=== PATIENT | female | born 1945 | race Caucasian/White ===

== ENCOUNTER 2019-05-19 22:20 | Emergency (ER) | payer MEDICARE ==
--- NOTE | 2019-05-19 23:33 | EDM.PDOC ---
ED HPI GENERAL MEDICAL PROBLEM - General Stated Complaint: painful great toe Time Seen by Provider: 05/19/19 22:48 Source of Information: Reports: Patient, Family History Limitations: Reports: No Limitations - History of Present Illness INITIAL COMMENTS - FREE TEXT/NARRATIVE: Patient presents with painful and blue left great toe. This started a little over a week ago and she says the two weeks prior to that her toe was red. She saw her PCP a week ago and was diagnosed with acute gout and treated with prednisone and NSAIDS but that isn't helping and the patient is here to get something stronger for the pain. She is IDDM and takes BP meds and baby aspirin. - Related Data Allergies Allergy/AdvReac Type Severity Reaction Status Date / Time Penicillins Allergy Intermediate Itching Verified 05/19/19 22:40 Home Meds: Home Meds . [Unable to Verify Home Med List] 05/19/19 [History] ED ROS GENERAL - Review of Systems Review Of Systems: See Below Constitutional: Denies: Fever, Malaise, Weakness HEENT: Reports: No Symptoms Respiratory: Denies: Shortness of Breath, Cough Cardiovascular: Denies: Chest Pain, Lightheadedness, Syncope Endocrine: Reports: No Symptoms GI/Abdominal: Denies: Abdominal Pain, Diarrhea, Vomiting : Denies: Dysuria, Flank Pain Musculoskeletal: Denies: Neck Pain, Shoulder Pain, Arm Pain, Back Pain, Hand Pain, Leg Pain, Foot Pain, Joint Pain Skin: Reports: Cyanosis (see CC). Denies: Jaundice, Mottled, Pallor, Diaphoresis Neurological: Denies: Confusion, Dizziness, Seizure, Syncope, Trouble Speaking, Difficulty Walking Psychiatric: Denies: Agitation, Anxiety, Confusion ED EXAM, GENERAL - Physical Exam Exam: See Below Exam Limited By: No Limitations General Appearance: Alert, WD/WN, No Apparent Distress Eye Exam: Bilateral Eye: EOMI, Normal Inspection, PERRL Ears: Normal External Exam, Hearing Grossly Normal Nose: Normal Inspection, No Blood Throat/Mouth: Normal Inspection, Normal Lips, Normal Voice, No Airway Compromise Head: Atraumatic, Normocephalic Neck: Normal Inspection, Full Range of Motion Respiratory/Chest: No Respiratory Distress, Lungs Clear, Normal Breath Sounds, No Accessory Muscle Use Cardiovascular: Regular Rate, Rhythm, No Edema, No Murmur Peripheral Pulses: 0: Posterior Tibial (L) (Doppler found a faint pulse here), Dorsalis Pedis (L) (nothing on doppler either), 2+: Carotid (L), Carotid (R), Radial (L), Radial (R), Posterior Tibial (R), Dorsalis Pedis (R) GI/Abdominal: Normal Bowel Sounds, Soft, Non-Tender, No Organomegaly, No Distention Back Exam: Normal Inspection, Full Range of Motion. No: CVA Tenderness (L), CVA Tenderness (R) Extremities: Normal Range of Motion, No Pedal Edema, Other (Left great toe is bluish-purple in the distal 2/3s, and second toe is blue distal 1/3. Palpation of the blue area is very tender. The joints are non-tender to palpation. Cap refill is slow but present (turns white then blue again). The lateral three toes and right side toes are pink. Sensation is intact but very slightly less in great toe in comparison to right per patient on exam. Motor is intact bilat. ) Neurological: Alert, Oriented, Normal Cognition, No Motor/Sensory Deficits ( except as above.) Psychiatric: Normal Affect, Normal Mood Skin Exam: Warm, Dry, Intact, Normal Color (except as above), No Rash Course - Vital Signs Last Recorded V/S: Last Vital Signs Temp 96.7 F 05/19/19 22:35 Pulse 74 05/19/19 22:35 Resp 16 05/19/19 22:35 BP 188/63 H 05/19/19 22:35 Pulse Ox 93 L 05/19/19 22:35 - Re-Assessments/Exams Free Text/Narrative Re-Assessment/Exam: 05/19/19 23:53 Discussed case with vascular surgeon, Dr. Guzmán at [facility] in [place] who advised aspirin (antiplatelet) and NSAIDS/oxycodone (pain control) for the next few days. His office will call her tomorrow and schedule appointment next week for evaluation and treatment options. He calls it "blue toe syndrome" and suspects microemboli in distal small arteries causing this. He says there is no treatment acutely for the toe now and it should develop collateral circulation and be viable. He wants to find where the microemboli are coming from and try to prevent further problems. I explained this to patient and her son/dtr-n-law. Patient discharged to home in stable condition. Departure - Departure Time of Disposition: 23:36 Disposition: Home, Self-Care 01 Reason for Transfer *Q: Other Condition: Good Clinical Impression: Blue toe syndrome of left lower extremity, Decreased pedal pulses Additional Instructions: 1. Take a full-strength aspirin daily. 2. Take Ibuprofen 600 mg three times daily as needed for pain. 3. If you need more pain relief take the Oxycodone as directed. 4. Tomorrow the [facility] in [place] will call you to set up an appointment for one day next week to evaluate and treat this as well as try to prevent additional problems with clotting and circulation.
[2019-05-19] MEDS ORDERED: Aspirin 325 MG Tab.EC PO ONE (23:35)
[2019-05-19] MEDS: Acetaminophen/oxyCODONE 325-5 MG Tab PO ONE (23:59)
== END 2019-05-19 23:55 | disposition home or self-care (01) ==
LOC: KA.ED 22:20
DX: I75.022 Atheroembolism of left lower extremity (principal); Z76.0 Encounter for issue of repeat prescription; E11.9 Type 2 diabetes mellitus without complications; Z79.4 Long term (current) use of insulin; Z79.82 Long term (current) use of aspirin; Z88.0 Allergy status to penicillin
CPT/HCPCS: 99283; 99284; A9270-GY

== ENCOUNTER 2019-06-25 13:40 | Inpatient (IN) | payer MEDICAID, MEDICARE ==
[2019-06-25] MEDS ORDERED: Sodium Chloride 0.9% 1,000 ML IV ONE (14:03)
[2019-06-25] MEDS ORDERED: Ondansetron 4 MG/2 ML SDV IVPUSH ONE (14:03)
--- NOTE | 2019-06-25 14:27 | EDM.PDOC ---
ED HPI GENERAL MEDICAL PROBLEM - General Chief Complaint: General Stated Complaint: NAUSEA,DEHYDRATION,VOMITING Time Seen by Provider: 06/25/19 14:01 Source of Information: Reports: Patient, Family (Family) History Limitations: Reports: No Limitations - History of Present Illness INITIAL COMMENTS - FREE TEXT/NARRATIVE: Patient is a 73-year-old female who presents to the emergency department via private vehicle with a complaint of not feeling well. Patient was said to have fever and chills for the last 2 days. Mild cough. Today developed nausea and vomiting without abdominal pain. Patient denies chest pain, shortness of breath , headache, diarrhea, blood in stool, dysuria, flank pain, or others in the household with similar symptoms. Onset: Gradual Duration: Day(s): Improves with: Reports: None Worsens with: Reports: None Associated Symptoms: Reports: Cough, Fever/Chills, Nausea/Vomiting, Shortness of Breath - Related Data Allergies Allergy/AdvReac Type Severity Reaction Status Date / Time Penicillins Allergy Intermediate Itching Verified 06/25/19 13:58 Home Meds: Home Meds Allopurinol [Zyloprim] 100 mg PO DAILY 06/25/19 [History] Aspirin 81 mg PO DAILY 06/25/19 [History] Atenolol 100 mg PO DAILY 06/25/19 [History] Atenolol [Tenormin] 50 mg PO BEDTIME 06/25/19 [History] Carboxymethylcellulose Sodium [Refresh Tears 0.5% Ophth Soln] 1 ml EYEBOTH DAILY PRN 06/25/19 [History] Clopidogrel Bisulfate [Clopidogrel] 75 mg PO DAILY 06/25/19 [History] Famotidine [Pepcid] 20 mg PO BID 06/25/19 [History] Furosemide [Lasix] 40 mg PO DAILY 06/25/19 [History] Insulin Glarg,Human.Rec.Analog [Lantus] 20 unit SQ BEDTIME 06/25/19 [History] Insulin Glarg,Human.Rec.Analog [Lantus] 40 - 45 unit SQ DAILY 06/25/19 [History] Levothyroxine [Synthroid] 50 mcg PO ACBREAKFAST 06/25/19 [History] Lisinopril 20 mg PO BID 06/25/19 [History] Multivitamin with Minerals [Multivitamins with Minerals] 1 tab PO DAILY [History] Rosuvastatin Calcium [Crestor] 40 mg PO DAILY 06/25/19 [History] Sennosides/Docusate Sodium [Senna Plus 8.6-50 mg Tablet] 1 each PO DAILY PRN [History] Simethicone 80 mg PO TID 06/25/19 [History] Triamcinolone Acetonide [Triamcinolone Acetonide 0.1% Crm] 1 applic TOP BID PRN 06/25/19 [History] cloNIDine 0.2 mg TOP Q7D 06/25/19 [History] cloNIDine 1 patch TOP Q7D 06/25/19 [History] cloNIDine [Catapres] 0.1 mg PO DAILY PRN 06/25/19 [History] glipiZIDE [Glipizide ER] 5 mg PO DAILY 06/25/19 [History] hydrALAZINE [Apresoline] 100 mg PO Q12HR 06/25/19 [History] metFORMIN [Glucophage] 1,000 mg PO DAILY 06/25/19 [History] oxyCODONE HCl/Acetaminophen [Oxycodone-Acetaminophen 5-325] 1 each PO Q6H PRN [History] ED ROS GENERAL - Review of Systems Review Of Systems: Comprehensive ROS is negative, except as noted in HPI. Constitutional: Reports: Fever, Chills, Weakness HEENT: Reports: No Symptoms Respiratory: Reports: Shortness of Breath, Cough Cardiovascular: Reports: No Symptoms Endocrine: Reports: No Symptoms GI/Abdominal: Reports: No Symptoms : Reports: No Symptoms Musculoskeletal: Reports: No Symptoms Skin: Reports: Other (Left foot. Vascular insufficiency with necrotic tissue) Neurological: Reports: No Symptoms Psychiatric: Reports: No Symptoms Hematologic/Lymphatic: Reports: No Symptoms Immunologic: Reports: No Symptoms ED EXAM, GENERAL - Physical Exam Exam: See Below Exam Limited By: No Limitations General Appearance: Alert, WD/WN, Mild Distress Eye Exam: Bilateral Eye: Normal Inspection Nose: Normal Inspection, Normal Mucosa, No Blood Throat/Mouth: Normal Inspection, Normal Oropharynx, No Airway Compromise Head: Atraumatic, Normocephalic Neck: Normal Inspection, Supple, Non-Tender Respiratory/Chest: No Respiratory Distress, Rales (Bibasilar) Cardiovascular: Regular Rate, Rhythm, No Murmur GI/Abdominal: Normal Bowel Sounds, Soft, Non-Tender, No Organomegaly, No Distention, No Abnormal Bruit, No Mass Back Exam: Normal Inspection. No: CVA Tenderness (L), CVA Tenderness (R) Extremities: Slow Capillary Refill (Bilateral lower extremities), Other (Left foot with distal phalanx of great toe necrotic. Multiple ulcerations of medial ankle. No erythema or streaking noted) Neurological: Alert, Oriented, Normal Cognition Psychiatric: Normal Affect, Normal Mood Skin Exam: Warm, Dry, No Rash, Wound/Incision (As above) Lymphatic: No Adenopathy Course - Vital Signs Last Recorded V/S: Last Vital Signs Temp 98.0 F 06/25/19 13:55 Pulse 74 06/25/19 13:55 Resp 20 06/25/19 13:55 BP 157/76 H 06/25/19 13:55 Pulse Ox 81 L 06/25/19 13:55 - Orders/Labs/Meds Orders: Active Orders 24 hr Category Date Time Status Patient Status [ADT] Routine ADT 06/25/19 16:50 Ordered Oxygen Therapy [RC] PRN Care 06/25/19 16:50 Ordered Peripheral IV Care [RC] . DIRECTED Care 06/25/19 14:03 Ordered VTE/DVT Education [RC] PER UNIT ROUTINE Care 06/25/19 16:50 Ordered Vital Signs [RC] Q4H Care 06/25/19 16:50 Ordered Azithromycin [Zithromax] 500 mg Med 06/25/19 16:48 Ordered Sodium Chloride 0.9% [Normal Saline] 250 ml IV ONETIME Potassium Chloride [KCL 20 MEQ in Water 100 ML] 20 meq Med 06/25/19 16:48 Ordered Premix Bag 1 bag IV ONETIME Sodium Chloride 0.9% @ 100 MLS/HR(250ml) Med 06/25/19 14:30 Ordered Sodium Chloride 0.9% [Normal Saline] 250 ml IV ASDIRECTED Sodium Chloride 0.9% [Saline Flush] Med 06/25/19 14:03 Ordered 10 ml FLUSH Q8HR PRN Peripheral IV Insertion Adult [OM.PC] Routine Oth 06/25/19 14:03 Ordered Resuscitation Status Routine Resus Stat 06/25/19 16:50 Ordered Medication Orders Sodium Chloride (Normal Saline) 250 mls @ 100 mls/hr IV ASDIRECTED SANTINO Last Admin: 06/25/19 15:16 Dose: 100 mls/hr Azithromycin 500 mg/ Sodium (Chloride) 250 mls @ 250 mls/hr IV ONETIME ONE Stop: 06/25/19 17:47 Potassium Chloride 20 meq/ (Premix) 100 mls @ 50 mls/hr IV ONETIME ONE Stop: 06/25/19 18:47 Sodium Chloride (Saline Flush) 10 ml FLUSH Q8HR PRN PRN Reason: keep vein open Labs: Laboratory Tests 06/25/19 06/25/19 06/25/19 Range/Units 14:20 14:20 14:20 WBC 15.32 H (5.00-10.00) 10^3/uL RBC 2.88 L (3.80-5.50) 10^6/uL Hgb 8.9 L (12.0-16.0) g/dL Hct 27.1 L (37.0-47.0) % MCV 94.1 H (82.0-92.0) fL MCH 30.9 (27.0-31.0) pg MCHC 32.8 (32.0-36.0) g/dL RDW 12.9 (11.5-14.5) % Plt Count 317 (150-400) 10^3/uL MPV 9.0 (7.4-10.4) fL Immature Gran % (Auto) 1.0 (0.0-5.0) % Neut % (Auto) 88.4 H (50.0-70.0) % Lymph % (Auto) 4.6 L (20.0-40.0) % Ida % (Auto) 5.9 (2.0-8.0) % Eos % (Auto) 0.0 L (1.0-3.0) % Baso % (Auto) 0.1 (0.0-1.0) % Immature Gran # (Auto) 0.16 (0.00-0.50) 10^3/uL Neut # (Auto) 13.53 H (2.50-7.00) 10^3/uL Lymph # (Auto) 0.71 L (1.00-4.00) 10^3/uL Ida # (Auto) 0.91 H (0.10-0.80) 10^3/uL Eos # (Auto) 0.00 L (0.10-0.30) 10^3/uL Baso # (Auto) 0.01 (0.00-0.10) 10^3/uL Sodium 137 (136-145) mmol/L Potassium 2.8 L (3.3-5.3) mmol/L Chloride 93 L (98-115) mmol/L Carbon Dioxide 28.7 (21.0-32.0) mmol/L Anion Gap 18.1 H (5-15) mmol/L BUN 19 (6-25) mg/dL Creatinine 1.05 (0.51-1.17) mg/dL Est Cr Clr Drug Dosing TNP Estimated GFR (MDRD) 52 mL/min Glucose 128 H (75 - 99) mg/dL Calcium 8.8 (8.7-10.3) mg/dL Total Bilirubin 0.6 (0.2-1.0) mg/dL AST 18 (15-37) U/L ALT 17 (12-78) U/L Alkaline Phosphatase 69 (46-116) IU/L B-Natriuretic Peptide 297 H (0-100) pg/mL Total Protein 6.7 (6.4-8.2) g/dL Albumin 2.89 L (3.00-4.80) g/dL Specimen Type Urine Color (YELLOW) Urine Appearance (CLEAR) Urine pH (5.0-9.0) Ur Specific [place] (1.005-1.030) Urine Protein (NEGATIVE) mg/dL Urine Glucose (UA) (NEGATIVE) mg/dL Urine Ketones (NEGATIVE) mg/dL Urine Occult Blood (NEGATIVE) Urine Nitrite (NEGATIVE) Urine Bilirubin (NEGATIVE) Urine Urobilinogen (0.2-1.0) E.U./dL Ur Leukocyte Esterase (NEGATIVE) Urine RBC (0-5) /HPF Urine WBC (0-5) /HPF Ur Epithelial Cells /LPF Urine Bacteria (NONE TO FEW) /HPF 06/25/19 Range/Units 15:05 WBC (5.00-10.00) 10^3/uL RBC (3.80-5.50) 10^6/uL Hgb (12.0-16.0) g/dL Hct (37.0-47.0) % MCV (82.0-92.0) fL MCH (27.0-31.0) pg MCHC (32.0-36.0) g/dL RDW (11.5-14.5) % Plt Count (150-400) 10^3/uL MPV (7.4-10.4) fL Immature Gran % (Auto) (0.0-5.0) % Neut % (Auto) (50.0-70.0) % Lymph % (Auto) (20.0-40.0) % Ida % (Auto) (2.0-8.0) % Eos % (Auto) (1.0-3.0) % Baso % (Auto) (0.0-1.0) % Immature Gran # (Auto) (0.00-0.50) 10^3/uL Neut # (Auto) (2.50-7.00) 10^3/uL Lymph # (Auto) (1.00-4.00) 10^3/uL Ida # (Auto) (0.10-0.80) 10^3/uL Eos # (Auto) (0.10-0.30) 10^3/uL Baso # (Auto) (0.00-0.10) 10^3/uL Sodium (136-145) mmol/L Potassium (3.3-5.3) mmol/L Chloride (98-115) mmol/L Carbon Dioxide (21.0-32.0) mmol/L Anion Gap (5-15) mmol/L BUN (6-25) mg/dL Creatinine (0.51-1.17) mg/dL Est Cr Clr Drug Dosing Estimated GFR (MDRD) mL/min Glucose (75 - 99) mg/dL Calcium (8.7-10.3) mg/dL Total Bilirubin (0.2-1.0) mg/dL AST (15-37) U/L ALT (12-78) U/L Alkaline Phosphatase (46-116) IU/L B-Natriuretic Peptide (0-100) pg/mL Total Protein (6.4-8.2) g/dL Albumin (3.00-4.80) g/dL Specimen Type . Urine Color Yellow (YELLOW) Urine Appearance Clear (CLEAR) Urine pH 5.5 (5.0-9.0) Ur Specific [place] 1.010 (1.005-1.030) Urine Protein 100 H (NEGATIVE) mg/dL Urine Glucose (UA) Negative (NEGATIVE) mg/dL Urine Ketones Negative (NEGATIVE) mg/dL Urine Occult Blood Negative (NEGATIVE) Urine Nitrite Negative (NEGATIVE) Urine Bilirubin Negative (NEGATIVE) Urine Urobilinogen 0.2 (0.2-1.0) E.U./dL Ur Leukocyte Esterase Negative (NEGATIVE) Urine RBC Not seen (0-5) /HPF Urine WBC 0-5 (0-5) /HPF Ur Epithelial Cells Occasional /LPF Urine Bacteria Occasional (NONE TO FEW) /HPF Meds: Medications Generic Name Dose Route Start Last Admin Trade Name Freq PRN Reason Stop Dose Admin Sodium Chloride 250 mls @ 100 mls/hr 06/25/19 14:30 06/25/19 15:16 Normal Saline IV 100 mls/hr ASDIRECTED SANTINO Administration Azithromycin 500 mg/ Sodium 250 mls @ 250 mls/hr 06/25/19 16:48 Chloride IV 06/25/19 17:47 ONETIME ONE Potassium Chloride 20 meq/ 100 mls @ 50 mls/hr 06/25/19 16:48 Premix IV 06/25/19 18:47 ONETIME ONE Sodium Chloride 10 ml 06/25/19 14:03 Saline Flush FLUSH Q8HR PRN keep vein open Discontinued Medications Generic Name Dose Route Start Last Admin Trade Name Freq PRN Reason Stop Dose Admin Ceftriaxone Sodium 1 gm 06/25/19 16:48 Rocephin IVPUSH 06/25/19 16:49 ONETIME ONE Sodium Chloride 1,000 mls @ 999 mls/hr 06/25/19 14:03 06/25/19 15:18 Normal Saline IV 06/25/19 15:03 Not Given .BOLUS ONE Ondansetron HCl 4 mg 06/25/19 14:03 06/25/19 15:14 Zofran IVPUSH 06/25/19 14:04 4 mg ONETIME ONE Administration - Radiology Interpretation Free Text/Narrative:: Chest x-ray shows Perihilar congestion consistent with bronchitis Right foot x-ray shows no definite acute osseous abnormalities - Re-Assessments/Exams Free Text/Narrative Re-Assessment/Exam: 06/25/19 16:53 Patient afebrile, vital signs stable, given 1 g Rocephin IV, 500 mg Zithromax IV , and 20 mEq of potassium. Discussed case with Josh Malloy provider. He will admit for observation and follow Departure - Departure Time of Disposition: 16:52 Disposition: Refer to Observation Condition: Fair Clinical Impression: Bronchitis, Hypokalemia, Hypoxemia Leukocytosis Qualifiers: Leukocytosis type: unspecified Qualified Code(s): D72.829 - Elevated white blood cell count, unspecified Anemia Qualifiers: Anemia type: unspecified type Qualified Code(s): D64.9 - Anemia, unspecified - Discharge Information Referrals: Jesenia Ash PA-C [Primary Care Provider] - Forms: ED Department Discharge Sepsis Event Note - Evaluation Sepsis Screening Result: No Definite Risk - Focused Exam Vital Signs: Vital Signs Temp Pulse Resp BP Pulse Ox 06/25/19 13:55 98.0 F 74 20 157/76 H 81 L Date Exam was Performed: 06/25/19 Time Exam was Performed: 16:54 - My Orders Last 24 Hours: My Active Orders 06/25/19 14:03 Peripheral IV Care [RC] . DIRECTED Sodium Chloride 0.9% [Saline Flush] 10 ml FLUSH Q8HR PRN Peripheral IV Insertion Adult [OM.PC] Routine 06/25/19 14:30 Sodium Chloride 0.9% @ 100 MLS/HR(250ml) Sodium Chloride 0.9% [Normal Saline] 250 ml IV ASDIRECTED 06/25/19 16:48 Azithromycin [Zithromax] 500 mg Sodium Chloride 0.9% [Normal Saline] 250 ml IV ONETIME Potassium Chloride [KCL 20 MEQ in Water 100 ML] 20 meq Premix Bag 1 bag IV ONETIME 06/25/19 16:50 Patient Status [ADT] Routine Oxygen Therapy [RC] PRN VTE/DVT Education [RC] PER UNIT ROUTINE Vital Signs [RC] Q4H Resuscitation Status Routine - Assessment/Plan Last 24 Hours: My Active Orders 06/25/19 14:03 Peripheral IV Care [RC] . DIRECTED Sodium Chloride 0.9% [Saline Flush] 10 ml FLUSH Q8HR PRN Peripheral IV Insertion Adult [OM.PC] Routine 06/25/19 14:30 Sodium Chloride 0.9% @ 100 MLS/HR(250ml) Sodium Chloride 0.9% [Normal Saline] 250 ml IV ASDIRECTED 06/25/19 16:48 Azithromycin [Zithromax] 500 mg Sodium Chloride 0.9% [Normal Saline] 250 ml IV ONETIME Potassium Chloride [KCL 20 MEQ in Water 100 ML] 20 meq Premix Bag 1 bag IV ONETIME 06/25/19 16:50 Patient Status [ADT] Routine Oxygen Therapy [RC] PRN VTE/DVT Education [RC] PER UNIT ROUTINE Vital Signs [RC] Q4H Resuscitation Status Routine
[2019-06-25] MEDS ORDERED: Sodium Chloride 0.9% 250 ML IV SCH (14:30)
[2019-06-25 14:57] LABS: ANION GAP 18.1 mmol/L (5-15); CHLORIDE,CL 93 mmol/L (98-115); SODIUM,NA 137 mmol/L (136-145)
--- NOTE | 2019-06-25 15:22 | CR ---
[id number] RAD/RAD Foot Left 2V EXAM: 3 VIEWS LEFT FOOT. INDICATION: UPPER RESPIRATORY INFECTION. COMPARISON: None. DISCUSSION: No fracture, dislocation or other acute osseous abnormality. Postsurgical changes following internal fixation of the distal tibia and fibula. No evidence of acute hardware failure or loosening. Moderate degenerative changes of the left ankle and midfoot. Mild degenerative changes of the interphalangeal joints. Moderate plantar calcaneal spur. IMPRESSION: 1. No definite acute osseous abnormalities. Chronic changes as above. Alex Das DO 06/25/19 1521 Thank you for allowing us to participate in the care of your patient.
--- NOTE | 2019-06-25 15:23 | CR ---
[id number] RAD/RAD Chest PA And Lateral EXAM: RAD Chest PA And Lateral INDICATION: UPPER RESPIRATORY INFECTION. COMPARISON: None. DISCUSSION: Cardiomediastinal silhouette is normal in size and contour. No infiltrate, effusion, pneumothorax, or edema. Central airway thickening. Left basilar subsegmental atelectasis and/or scarring. IMPRESSION: Findings consistent with bronchitis. No focal infiltrate is identified. Alex Das DO 06/25/19 1522 Thank you for allowing us to participate in the care of your patient.
[2019-06-25] MEDS ORDERED: Azithromycin 500 MG in Sodium Chloride 0.9% 250 ML IV ONE (16:48)
[2019-06-25] MEDS ORDERED: Potassium Chloride 20 MEQ in Premix Bag 1 BAG IV ONE ×2 (16:48→18:05)
[2019-06-25] MEDS ORDERED: cefTRIAXone 1 GM Vial IVPUSH ONE (16:48)
[2019-06-25] MEDS ORDERED: Carboxymethylcellulose Sodium 0.5% Ophth Soln 15 ML Bottle EYEBOTH PRN (18:03)
[2019-06-25] MEDS ORDERED: Acetaminophen/oxyCODONE 325-5 MG Tab PO PRN (18:03)
[2019-06-25] MEDS ORDERED: cloNIDine 0.1 MG Tab PO PRN (18:03)
[2019-06-25] MEDS ORDERED: Triamcinolone Acetonide 0.1% Crm 15 GM Tube TOP PRN (18:03)
[2019-06-25] MEDS ORDERED: CLONIDINE TOP SCH ×2 (18:15)
[2019-06-25] MEDS: Sodium Chloride 0.9% 250 ML IV SCH ×2 (20:19→21:39)
[2019-06-25] MEDS: Simethicone 80 MG Tab.Chew PO SCH (20:27)
[2019-06-25] MEDS: Insulin Glargine,Human Rec. Analog 100 Units/ML 3 ML Pen SUBCUT SCH (20:28)
[2019-06-25] MEDS: hydrALAZINE 50 MG Tab PO SCH (20:30)
[2019-06-25] MEDS: Lisinopril 20 MG Tab PO SCH (20:31)
[2019-06-25] MEDS: Atenolol 25 MG Tab PO SCH (20:31)
[2019-06-25] MEDS: metroNIDAZOLE/Normal Saline 500 MG in Premix Bag 1 BAG IV SCH (21:41)
[2019-06-26] MEDS: Albuterol/Ipratropium 3.0-0.5 MG/3 ML Neb Soln NEB SCH ×4 (00:04→17:08)
[2019-06-26] MEDS: Levothyroxine 50 MCG Tab PO SCH (07:38)
[2019-06-26 08:01] LABS: ANION GAP 14.1 mmol/L (5-15)
[2019-06-26] MEDS: Aspirin 81 MG Tab.Chew PO SCH (08:24)
[2019-06-26] MEDS: Furosemide 40 MG Tab PO SCH (08:24)
[2019-06-26] MEDS: Clopidogrel 75 MG Tab PO SCH (08:24)
[2019-06-26] MEDS: Rosuvastatin 10 MG Tab PO SCH (08:24)
[2019-06-26] MEDS: Multivitamins with Minerals/Iron/Folic Acid/Lycopene Tab PO SCH (08:24)
[2019-06-26] MEDS: Simethicone 80 MG Tab.Chew PO SCH ×3 (08:25→21:18)
[2019-06-26] MEDS: Famotidine 20 MG Tab PO SCH (08:25)
[2019-06-26] MEDS: metFORMIN 500 MG Tab PO SCH (08:25)
[2019-06-26] MEDS: glipiZIDE 5 MG Tab.ER PO SCH (08:25)
[2019-06-26] MEDS: Allopurinol 100 MG Tab PO SCH (08:25)
[2019-06-26] MEDS: metroNIDAZOLE/Normal Saline 500 MG in Premix Bag 1 BAG IV SCH ×2 (08:26→21:17)
[2019-06-26] MEDS: Atenolol 25 MG Tab PO SCH ×2 (08:30→21:18)
[2019-06-26] MEDS: Insulin Glargine,Human Rec. Analog 100 Units/ML 3 ML Pen SUBCUT SCH ×2 (09:09→21:22)
[2019-06-26] MEDS: Lisinopril 20 MG Tab PO SCH ×2 (09:39→21:19)
[2019-06-26] MEDS: hydrALAZINE 50 MG Tab PO SCH ×2 (10:08→21:18)
--- NOTE | 2019-06-26 12:03 | HP ---
HISTORY OF PRESENT ILLNESS: This is a 73-year-old [facility] female patient who brought to the ER with concerns about just feeling of weakness and not feeling well. The patient has an ischemic left great toe that she was just seen by Podiatry back on Thursday in [place] with Dr. Lorenzo. The patient had a procedure in [place], where she had stents placed to her peripheral arteries in her left leg to increase the flow to her foot. The patient states her toe is still not come back to having good blood flow. It remains black. The patient's family states that the patient just has not been feeling well. She had been having fever off and on for the past 2 days. She had some nausea and a little bit of vomiting just because she was not feeling well, so she was brought to the emergency room. In the emergency room, the patient's chest x-ray was unremarkable. CBC showed a white count elevated. The patient's potassium was low at 2.8, so she was admitted at that time. PAST MEDICAL HISTORY: The patient has history of gout, hypertension, coronary artery disease, GERD, diabetes mellitus type 2, hypothyroidism, hyperlipidemia. MEDICATIONS: She takes at home, clonidine patch she places on 0.2 every 7 days, then she puts on clonidine patch 0.3 every 7 days; aspirin 81 mg daily; simethicone 80 mg 3 times a day; she takes a Senna Plus tablet daily as needed, she takes Crestor 40 mg daily, she takes some oxycodone 5/325 one tab every 6 hours as needed for pain; metformin 1000 mg daily; multivitamin; lisinopril 20 mg twice a day; hydralazine 100 mg twice a day; levothyroxine 50 mcg daily; glipizide ER 5 mg daily; Lasix 40 mg daily; Pepcid 20 mg twice a day; she takes Lantus 20 units at bedtime; she also takes Lantus 40-45 units daily in the morning; she takes Plavix 75 mg daily; clonidine 0.1 mg daily as needed for high blood pressure; atenolol 50 mg at bedtime; allopurinol 100 mg daily; and atenolol 100 mg daily in the morning. ALLERGIES: She is allergic to penicillin. SOCIAL/PERSONAL HISTORY: The patient lives at [facility]. She has no alcohol or tobacco use. REVIEW OF SYSTEMS: CONSTITUTIONAL: The patient just feels like she is weak and tired. Her appetite is poor. She has been fatigued, hot spells on and off. EYES: No recent visual changes. ENT: No sinus congestion or hoarseness. CARDIOVASCULAR: No chest pain or palpitations. RESPIRATORY: No cough. No shortness of breath. GI: No vomiting, diarrhea or melena. : No dysuria or hematuria. MUSCULOSKELETAL: The patient complains of left great toe being black, some redness and swelling to her left lower leg. INTEGUMENTARY: No rash or pruritus. NEUROLOGIC/PSYCHIATRIC: No recent headache or focal weakness. No depressive symptoms. ENDOCRINE: No heat or cold intolerances or polydipsia. HEMATOLOGIC/LYMPHATIC: No excessive bruising or lymph node swelling. ALLERGIC/IMMUNOLOGIC: No hives or recurrent infections. PHYSICAL EXAMINATION: GENERAL: This is a white female in no acute distress. VITAL SIGNS: Today, temperature is 96.8, pulse is 69, blood pressure is 117/54, respiratory rate 18, oxygen saturation on room air is 91%. HEENT: Head is normocephalic. EOMs are intact. Pupils are equal, round, and reactive to light and accommodation. Nose is clear. No pharyngeal erythema noted. NECK: Supple. No JVD. Trachea midline. LUNGS: Sounds are clear throughout lung beyer. Slightly diminished at bilateral bases. CARDIAC: Regular rate and rhythm. No murmurs identified. ABDOMEN: Obese, soft, nontender, nondistended. Bowel sounds present x4. EXTREMITIES: Full range of motion. No joint effusions noted. NEUROLOGIC: Grossly intact. DIAGNOSTIC: The patient's lab work yesterday upon admission, CBC showed a white count elevated at 15.3, hemoglobin 8.9, platelet count at 317. Panel showed potassium low in the ER at 2.8, chloride 93, GFR 52, brain natriuretic peptide was just slightly elevated at 297, otherwise labs were unremarkable. Urinalysis was unremarkable. Repeat lab work this morning 06/26/2019. Repeat CBC shows white count down to 10.3, hemoglobin is down to 8.1, platelet count is 270. The patient's chemistry panel shows sodium slightly low at 133, potassium is up to 3.6, chloride 94, GFR is at 50, total protein is low at 5.9, albumin is low at 2.37, glucose this morning was 211. IMPRESSION/PLAN: 1. Left lower extremity cellulitis. Plan: We will continue with Rocephin 1 g IV along with Flagyl 500 mg twice a day, seems to be improving on exam and per patient. Left lower extremity is less edematous and erythematous, less warm to the touch. The patient's white count has come down. We will continue with current therapy. 2. Anemia. Plan: The patient's hemoglobin yesterday was 8.9, now today is down to 8.1. We are going to obtain a folate, vitamin B12, ferritin, iron, and TIBC along with fecal occult blood for further assessment of the patient's acute anemia. No sources of bleeding noted at this time. 3. Recent cough. The patient's oxygen saturations have been low into the upper 80s and low 90s. We will try a DuoNeb nebulizer few treatments if this helps. The patient's brain natriuretic peptide on admission was just mildly elevated at 297. 4. History of gout. Plan: Continue with allopurinol 100 mg daily. 5. History of hypertension with coronary artery disease. Plan: Continue with beta-val of atenolol 100 mg in the morning, 50 mg in the evening; aspirin 81 mg daily; also hydralazine 100 mg twice a day. She does have a clonidine patch 0.2. We will continue with Plavix 75 mg daily along with diuretic of Lasix 40 mg daily. She also takes an STEFANIA inhibitor of lisinopril 20 mg twice a day. The patient denies any chest pain. 6. History of gastroesophageal reflux disease. Plan: Continue with Pepcid 20 mg daily. 7. History of diabetes mellitus type 2. We will continue to check blood sugars 4 times a day. Continue with ADA diet. We will continue with metformin 1000 mg daily and Lantus 20 units at bedtime, 40 units in the morning. 8. History of hypothyroidism. Plan: Continue with levothyroxine 50 mcg daily. 9. Hypokalemia, much improved. The patient's potassium was low yesterday at 2.8. She was given 40 mEq IV cocktail, it is up to 3.6 today. We are going to give her 20 mEq of oral potassium today. Recheck lab work tomorrow morning. 10.History of hyperlipidemia. Plan: Continue with Crestor 40 mg daily. OVERALL PLAN: The patient's left lower extremity exam appears less erythematous and less edematous, less warm to the touch. Her white count is coming down nicely. We will continue with antibiotic therapy of Rocephin along with Flagyl. She does have a coming appointment with Dr. Lorenzo on Thursday from Podiatry. Concerning her anemia, hemoglobin is 8.1 today. We are going to do anemia workup along with fecal occult blood test. Regarding the patient's recent cough that was reported, the patient's lung sounds are clear. Her oxygen saturations do seem to be on the low side and the high 80s-90s. We will try a couple of DuoNeb today to see if this improves her oxygen saturations and her reported cough. /[id number]/MODL MTDD
[2019-06-26] MEDS: Docusate Sodium 100 MG Cap PO SCH ×2 (15:08→21:18)
[2019-06-26] MEDS: Ondansetron 4 MG/2 ML SDV IVPUSH PRN (22:51)
[2019-06-27] MEDS: Albuterol/Ipratropium 3.0-0.5 MG/3 ML Neb Soln NEB SCH ×5 (00:34→23:36)
[2019-06-27] MEDS: Sodium Chloride 0.9% 10 ML Syringe FLUSH PRN ×2 (00:34→23:50)
[2019-06-27 07:53] LABS: ANION GAP 12.4 mmol/L (5-15)
[2019-06-27] MEDS: Potassium Chloride 20 MEQ Tab.ER PO SCH (08:02)
[2019-06-27] MEDS: Levothyroxine 50 MCG Tab PO SCH (08:02)
[2019-06-27] MEDS: Atenolol 25 MG Tab PO SCH ×3 (09:00→21:08)
[2019-06-27] MEDS: Rosuvastatin 10 MG Tab PO SCH (09:04)
[2019-06-27] MEDS: Multivitamins with Minerals/Iron/Folic Acid/Lycopene Tab PO SCH (09:05)
[2019-06-27] MEDS: glipiZIDE 5 MG Tab.ER PO SCH (09:05)
[2019-06-27] MEDS: Clopidogrel 75 MG Tab PO SCH ×2 (09:05→13:13)
[2019-06-27] MEDS: Furosemide 40 MG Tab PO SCH ×2 (09:05→13:12)
[2019-06-27] MEDS: Famotidine 20 MG Tab PO SCH (09:05)
[2019-06-27] MEDS: metFORMIN 500 MG Tab PO SCH (09:05)
[2019-06-27] MEDS: Simethicone 80 MG Tab.Chew PO SCH ×3 (09:05→21:12)
[2019-06-27] MEDS: Docusate Sodium 100 MG Cap PO SCH ×3 (09:05→21:07)
[2019-06-27] MEDS: metroNIDAZOLE/Normal Saline 500 MG in Premix Bag 1 BAG IV SCH ×2 (09:06→21:20)
[2019-06-27] MEDS: Allopurinol 100 MG Tab PO SCH (09:06)
[2019-06-27] MEDS: Aspirin 81 MG Tab.Chew PO SCH ×2 (09:06→13:12)
[2019-06-27] MEDS: Lisinopril 20 MG Tab PO SCH ×3 (09:09→21:07)
[2019-06-27] MEDS: hydrALAZINE 50 MG Tab PO SCH ×3 (09:09→21:07)
[2019-06-27] MEDS: Insulin Glargine,Human Rec. Analog 100 Units/ML 3 ML Pen SUBCUT SCH ×2 (09:21→21:15)
[2019-06-27] MEDS: Insulin Aspart 100 Units/ML 3 ML Pen SUBCUT SCH ×3 (12:07→21:15)
--- NOTE | 2019-06-27 14:01 | PN ---
06/27/2019 PATIENT NAME: MJ VEGA SUBJECTIVE: This is a 73-year-old [employer] female who was brought to the emergency room by her family with concerns about not feeling well for 2 days and having fever at home. She was actually nauseated and throwing up. She does have a history of an ischemic left great toe that she has been seen by Podiatry. She had an angiogram where they placed some stents in her left lower leg to increase the blood flow to that foot. Her toe is not responding real well, still it is black. The patient says the toe does not hurt. She denied any chest pain or shortness of breath. At that time, the patient was admitted. Chest x-ray was clear. On admission, the patient's white count was elevated at 15. The patient's left lower leg was edematous and erythematous in her hennessy and calf area. Today, the patient states she is not feeling well. She is very weak. She had a hard time standing. She is very pale. She is nauseated. The nursing staff had to give her some Zofran last night for nausea. She is just much weaker today, not feeling good. Her leg she says is a little bit redder today. She denies any chest pain or shortness of breath. OBJECTIVE: VITAL SIGNS: Today, temperature is 99.8, blood pressure is 133/57, respiratory rate is 16, oxygen saturations on 1-1/2 L is 49%. GENERAL: This is an elderly white female, in no acute distress. She is very pale and ill appearing today compared to yesterday. EXTREMITIES: Her left lower leg is erythematous and edematous about from her ankle up to below her knee. I did draw lines on her demarcation lines of erythema. Her left foot is not red and swollen. Her toe continues to be black and necrotic appearing. Her left great toe unchanged from previous assessment. HEART: Tones are regular rate and rhythm. LUNGS: Lung sounds are clear throughout. Diminished at bilateral bases. ABDOMEN: Soft, nontender, nondistended. Bowel sounds present x4. LABORATORY DATA: Lab work that was obtained today. CBC shows a white count elevated at 10.9, hemoglobin is 8.5. Chemistry panel shows sodium low at 129, glucose is 210. Total protein is low at 6.0 and albumin is low at 2.4. IMPRESSION AND PLAN: 1. Left lower extremity cellulitis. Plan: We will continue with Rocephin 1 g IV daily along with Flagyl 500 mg twice a day. Her left lower extremity, I outlined demarcations of erythema. It is erythematous, edematous, and warm to the touch. Does have some small scabbed areas scattered on her hennessy area. White count is pretty much stable at 10.9 today. We will continue with current antibiotic therapy, see how she does. She is slightly febrile today at 99.8. 2. Anemia. Plan: The patient's hemoglobin today is stable at 8.5. We are pending the patient's anemia workup of folate, vitamin B12, ferritin, iron and TIBC. She has not had a stool yet, but we are going to check her for fecal occult blood when she has a stool. No sources of bleeding noted. 3. Recent cough with low oxygen saturations. Plan: We will continue with DuoNebs 4 times a day. Nursing staff does report that her oxygen saturations do improve after nebulizer treatments. We will continue with incentive spirometer every 2 hours while awake. The patient's brain- natriuretic peptide on admission was just slightly elevated at 297. 4. History of gout. Plan: Continue with allopurinol 100 mg daily. 5. History of hypertension with coronary artery disease. Plan: Continue with beta-val of atenolol 100 mg in the morning, 50 mg in the evening, aspirin 81 mg daily, hydralazine 100 mg twice a day, clonidine patch 0.2 daily for one week, Plavix 75 mg daily, Lasix 40 mg daily, STEFANIA inhibitor of lisinopril 20 mg twice a day. The patient denies any shortness of breath or chest pain at this time. We will continue to monitor. 6. History of gastroesophageal reflux disease. Plan: Continue with Pepcid 20 mg daily. 7. History of diabetes mellitus. We will continue to check her blood sugars 4 times a day. She is an ADA diet. We will continue with metformin 1000 mg daily along with her Lantus 20 units at bedtime, 40 units in the morning. We are going to add a medium dose sliding scale insulin today to cover high blood sugars. 8. History of hypothyroidism. Plan: Continue with levothyroxine 50 mcg daily. 9. Hypokalemia upon admission. This is improved. The patient's potassium today continues to be 3.6. I am going to give her oral potassium 20 mEq daily. We will recheck lab work in the morning. 10.History of hyperlipidemia. Plan: Continue Crestor 40 mg daily. OVERALL PLAN: The patient's left lower extremity appears to be a little bit worse today, now again she is feeling ill and she is febrile. White count seems to be stable. We will continue with antibiotic therapy of Rocephin and Flagyl as ordered. She does have an appointment with Dr. Lorenzo in [place] of Podiatry on Thursday. Still pending lab work on her anemia workup and waiting for fecal occult blood to find sources of her anemia. We will continue with DuoNebs, basically that seem to be helping her O2 sats along with incentive spirometer. /[id number]/MODL MTDD
[2019-06-27] MEDS ORDERED: Acetaminophen 325 MG Tab PO PRN (17:54)
[2019-06-27] MEDS: cefTRIAXone 1 GM Vial IVPUSH SCH (18:16)
[2019-06-27] MEDS: Sodium Chloride 0.9% 250 ML IV SCH (19:07)
[2019-06-27] MEDS: Ondansetron 4 MG/2 ML SDV IVPUSH PRN (23:45)
[2019-06-28] MEDS: Albuterol/Ipratropium 3.0-0.5 MG/3 ML Neb Soln NEB SCH (06:55)
[2019-06-28] MEDS: Levothyroxine 50 MCG Tab PO SCH (07:27)
[2019-06-28 07:40] LABS: ANION GAP 10.5 mmol/L (5-15)
[2019-06-28] MEDS: Insulin Aspart 100 Units/ML 3 ML Pen SUBCUT SCH ×4 (08:04→21:11)
[2019-06-28] MEDS: hydrALAZINE 50 MG Tab PO SCH ×2 (08:15→20:58)
[2019-06-28] MEDS: Potassium Chloride 20 MEQ Tab.ER PO SCH (08:15)
[2019-06-28] MEDS: Furosemide 40 MG Tab PO SCH (08:15)
[2019-06-28] MEDS: Atenolol 25 MG Tab PO SCH ×2 (08:16→20:59)
[2019-06-28] MEDS: metFORMIN 500 MG Tab PO SCH (08:16)
[2019-06-28] MEDS: glipiZIDE 5 MG Tab.ER PO SCH (08:16)
[2019-06-28] MEDS: Lisinopril 20 MG Tab PO SCH ×2 (08:16→20:58)
[2019-06-28] MEDS: metroNIDAZOLE/Normal Saline 500 MG in Premix Bag 1 BAG IV SCH ×2 (08:18→20:55)
[2019-06-28] MEDS: Sodium Chloride 0.9% 250 ML IV SCH (08:18)
[2019-06-28] MEDS: Multivitamins with Minerals/Iron/Folic Acid/Lycopene Tab PO SCH (08:23)
[2019-06-28] MEDS: Docusate Sodium 100 MG Cap PO SCH ×2 (08:23→20:58)
[2019-06-28] MEDS: Simethicone 80 MG Tab.Chew PO SCH (08:23)
[2019-06-28] MEDS: Rosuvastatin 10 MG Tab PO SCH ×2 (08:24→20:58)
[2019-06-28] MEDS: Famotidine 20 MG Tab PO SCH (08:24)
[2019-06-28] MEDS: Insulin Glargine,Human Rec. Analog 100 Units/ML 3 ML Pen SUBCUT SCH ×2 (08:25→21:09)
--- NOTE | 2019-06-28 09:34 | PCM.PN ---
- General Info Date of Service: 06/28/19 Functional Status: Reports: Pain Controlled, Tolerating Diet, Urinating. Denies : Ambulating - Review of Systems General: Reports: Weakness, Fatigue. Denies: Fever, Night Sweats HEENT: Reports: No Symptoms Pulmonary: Denies: Shortness of Breath, Cough Cardiovascular: Denies: Chest Pain, PND, Edema Gastrointestinal: Denies: Diarrhea, Nausea, Vomiting Genitourinary: Reports: No Symptoms Musculoskeletal: Reports: Neck Pain Skin: Reports: Rash Neurological: Reports: Pre-Existing Deficit, Difficulty Walking, Weakness. Denies: Numbness, Paresthesia Psychiatric: Reports: No Symptoms - Patient Data Vitals - Most Recent: Last Vital Signs Temp 97.4 F 06/28/19 06:55 Pulse 81 06/28/19 08:16 Resp 20 06/28/19 06:55 BP 137/61 06/28/19 08:16 Pulse Ox 93 L 06/28/19 06:55 Weight - Most Recent: 232 lb 11.2 oz I&O - Last 24 Hours: Intake & Output 06/27/19 06/28/19 06/28/19 22:59 06:59 14:59 Intake Total 650 200 Output Total 1800 800 Balance -1150 -600 Lab Results Last 24 Hours: Laboratory Results - last 24 hr 06/26/19 06/26/19 06/26/19 Range/Units 07:07 07:07 07:07 WBC (5.00-10.00) 10^3/uL RBC (3.80-5.50) 10^6/uL Hgb (12.0-16.0) g/dL Hct (37.0-47.0) % MCV (82.0-92.0) fL MCH (27.0-31.0) pg MCHC (32.0-36.0) g/dL RDW (11.5-14.5) % Plt Count (150-400) 10^3/uL MPV (7.4-10.4) fL Immature Gran % (Auto) (0.0-5.0) % Neut % (Auto) (50.0-70.0) % Lymph % (Auto) (20.0-40.0) % [place] % (Auto) (2.0-8.0) % Eos % (Auto) (1.0-3.0) % Baso % (Auto) (0.0-1.0) % Immature Gran # (Auto) (0.00-0.50) 10^3/uL Neut # (Auto) (2.50-7.00) 10^3/uL Lymph # (Auto) (1.00-4.00) 10^3/uL [place] # (Auto) (0.10-0.80) 10^3/uL Eos # (Auto) (0.10-0.30) 10^3/uL Baso # (Auto) (0.00-0.10) 10^3/uL Sodium (136-145) mmol/L Potassium (3.3-5.3) mmol/L Chloride (98-115) mmol/L Carbon Dioxide (21.0-32.0) mmol/L Anion Gap (5-15) mmol/L BUN (6-25) mg/dL Creatinine (0.51-1.17) mg/dL Est Cr Clr Drug Dosing mL/min Estimated GFR (MDRD) mL/min Glucose (75 - 99) mg/dL POC Glucose (74-106) mg/dl Calcium (8.7-10.3) mg/dL Iron 18 L (35-145) ug/dL TIBC 217 L (261-478) ug/dL Unsaturated IBC 199 (155-355) ug/dL Transferrin % Sat 8.3 L (20.0-50.0) % Ferritin 362 H (11-307) ng/mL Total Bilirubin (0.2-1.0) mg/dL AST (15-37) U/L ALT (12-78) U/L Alkaline Phosphatase (46-116) IU/L Total Protein (6.4-8.2) g/dL Albumin (3.00-4.80) g/dL Vitamin B12 186 (180-914) pg/mL Folate >22.3 ng/mL 06/27/19 06/27/19 06/27/19 Range/Units 09:19 11:55 17:58 WBC (5.00-10.00) 10^3/uL RBC (3.80-5.50) 10^6/uL Hgb (12.0-16.0) g/dL Hct (37.0-47.0) % MCV (82.0-92.0) fL MCH (27.0-31.0) pg MCHC (32.0-36.0) g/dL RDW (11.5-14.5) % Plt Count (150-400) 10^3/uL MPV (7.4-10.4) fL Immature Gran % (Auto) (0.0-5.0) % Neut % (Auto) (50.0-70.0) % Lymph % (Auto) (20.0-40.0) % [place] % (Auto) (2.0-8.0) % Eos % (Auto) (1.0-3.0) % Baso % (Auto) (0.0-1.0) % Immature Gran # (Auto) (0.00-0.50) 10^3/uL Neut # (Auto) (2.50-7.00) 10^3/uL Lymph # (Auto) (1.00-4.00) 10^3/uL [place] # (Auto) (0.10-0.80) 10^3/uL Eos # (Auto) (0.10-0.30) 10^3/uL Baso # (Auto) (0.00-0.10) 10^3/uL Sodium (136-145) mmol/L Potassium (3.3-5.3) mmol/L Chloride (98-115) mmol/L Carbon Dioxide (21.0-32.0) mmol/L Anion Gap (5-15) mmol/L BUN (6-25) mg/dL Creatinine (0.51-1.17) mg/dL Est Cr Clr Drug Dosing mL/min Estimated GFR (MDRD) mL/min Glucose (75 - 99) mg/dL POC Glucose 313 H 297 H 233 H (74-106) mg/dl Calcium (8.7-10.3) mg/dL Iron (35-145) ug/dL TIBC (261-478) ug/dL Unsaturated IBC (155-355) ug/dL Transferrin % Sat (20.0-50.0) % Ferritin (11-307) ng/mL Total Bilirubin (0.2-1.0) mg/dL AST (15-37) U/L ALT (12-78) U/L Alkaline Phosphatase (46-116) IU/L Total Protein (6.4-8.2) g/dL Albumin (3.00-4.80) g/dL Vitamin B12 (180-914) pg/mL Folate ng/mL 06/27/19 06/28/19 06/28/19 Range/Units 21:03 07:04 07:04 WBC 9.63 (5.00-10.00) 10^3/uL RBC 2.57 L (3.80-5.50) 10^6/uL Hgb 7.9 L (12.0-16.0) g/dL Hct 24.3 L (37.0-47.0) % MCV 94.6 H (82.0-92.0) fL MCH 30.7 (27.0-31.0) pg MCHC 32.5 (32.0-36.0) g/dL RDW 12.6 (11.5-14.5) % Plt Count 263 (150-400) 10^3/uL MPV 9.0 (7.4-10.4) fL Immature Gran % (Auto) 0.2 (0.0-5.0) % Neut % (Auto) 75.5 H (50.0-70.0) % Lymph % (Auto) 11.8 L (20.0-40.0) % [place] % (Auto) 11.7 H (2.0-8.0) % Eos % (Auto) 0.7 L (1.0-3.0) % Baso % (Auto) 0.1 (0.0-1.0) % Immature Gran # (Auto) 0.02 (0.00-0.50) 10^3/uL Neut # (Auto) 7.26 H (2.50-7.00) 10^3/uL Lymph # (Auto) 1.14 (1.00-4.00) 10^3/uL [place] # (Auto) 1.13 H (0.10-0.80) 10^3/uL Eos # (Auto) 0.07 L (0.10-0.30) 10^3/uL Baso # (Auto) 0.01 (0.00-0.10) 10^3/uL Sodium 134 L (136-145) mmol/L Potassium 3.2 L (3.3-5.3) mmol/L Chloride 95 L (98-115) mmol/L Carbon Dioxide 31.7 (21.0-32.0) mmol/L Anion Gap 10.5 (5-15) mmol/L BUN 17 (6-25) mg/dL Creatinine 0.94 (0.51-1.17) mg/dL Est Cr Clr Drug Dosing 42.79 mL/min Estimated GFR (MDRD) 59 mL/min Glucose 127 H (75 - 99) mg/dL POC Glucose 245 H (74-106) mg/dl Calcium 8.4 L (8.7-10.3) mg/dL Iron (35-145) ug/dL TIBC (261-478) ug/dL Unsaturated IBC (155-355) ug/dL Transferrin % Sat (20.0-50.0) % Ferritin (11-307) ng/mL Total Bilirubin 0.4 (0.2-1.0) mg/dL AST 16 (15-37) U/L ALT 15 (12-78) U/L Alkaline Phosphatase 59 (46-116) IU/L Total Protein 6.0 L (6.4-8.2) g/dL Albumin 2.24 L (3.00-4.80) g/dL Vitamin B12 (180-914) pg/mL Folate ng/mL 06/28/19 Range/Units 07:44 WBC (5.00-10.00) 10^3/uL RBC (3.80-5.50) 10^6/uL Hgb (12.0-16.0) g/dL Hct (37.0-47.0) % MCV (82.0-92.0) fL MCH (27.0-31.0) pg MCHC (32.0-36.0) g/dL RDW (11.5-14.5) % Plt Count (150-400) 10^3/uL MPV (7.4-10.4) fL Immature Gran % (Auto) (0.0-5.0) % Neut % (Auto) (50.0-70.0) % Lymph % (Auto) (20.0-40.0) % [place] % (Auto) (2.0-8.0) % Eos % (Auto) (1.0-3.0) % Baso % (Auto) (0.0-1.0) % Immature Gran # (Auto) (0.00-0.50) 10^3/uL Neut # (Auto) (2.50-7.00) 10^3/uL Lymph # (Auto) (1.00-4.00) 10^3/uL [place] # (Auto) (0.10-0.80) 10^3/uL Eos # (Auto) (0.10-0.30) 10^3/uL Baso # (Auto) (0.00-0.10) 10^3/uL Sodium (136-145) mmol/L Potassium (3.3-5.3) mmol/L Chloride (98-115) mmol/L Carbon Dioxide (21.0-32.0) mmol/L Anion Gap (5-15) mmol/L BUN (6-25) mg/dL Creatinine (0.51-1.17) mg/dL Est Cr Clr Drug Dosing mL/min Estimated GFR (MDRD) mL/min Glucose (75 - 99) mg/dL POC Glucose 127 H (74-106) mg/dl Calcium (8.7-10.3) mg/dL Iron (35-145) ug/dL TIBC (261-478) ug/dL Unsaturated IBC (155-355) ug/dL Transferrin % Sat (20.0-50.0) % Ferritin (11-307) ng/mL Total Bilirubin (0.2-1.0) mg/dL AST (15-37) U/L ALT (12-78) U/L Alkaline Phosphatase (46-116) IU/L Total Protein (6.4-8.2) g/dL Albumin (3.00-4.80) g/dL Vitamin B12 (180-914) pg/mL Folate ng/mL Med Orders - Current: Current Medications Acetaminophen (Tylenol) 325 mg PO Q4H PRN PRN Reason: Fever Albuterol/Ipratropium (Duoneb 3.0-0.5 Mg/3 Ml) 3 ml NEB Q6HRRT [facility] Last Admin: 06/28/19 06:55 Dose: 3 ml Allopurinol (Zyloprim) 100 mg PO DAILY@1200 [facility] Artificial Tears (Refresh Tears 0.5%) 0 ml EYEBOTH DAILY PRN PRN Reason: Dry Eyes Aspirin (Aspirin) 81 mg PO DAILY [facility] Last Admin: 06/27/19 13:12 Dose: 81 mg Atenolol (Tenormin) 100 mg PO DAILY [facility] Last Admin: 06/28/19 08:16 Dose: 100 mg Atenolol (Tenormin) 50 mg PO BEDTIME [facility] Last Admin: 06/27/19 21:08 Dose: 50 mg Ceftriaxone Sodium (Rocephin) 1 gm IVPUSH Q24H [facility] Last Admin: 06/27/19 18:16 Dose: 1 gm Clonidine HCl (Catapres) 0.1 mg PO DAILY PRN PRN Reason: Hypertension Clopidogrel Bisulfate (Plavix) 75 mg PO DAILY [facility] Last Admin: 06/27/19 13:13 Dose: 75 mg Docusate Sodium (Colace) 100 mg PO BID [facility] Last Admin: 06/28/19 08:23 Dose: 100 mg Famotidine (Pepcid) 20 mg PO DAILY [facility] Last Admin: 06/28/19 08:24 Dose: 20 mg Furosemide (Lasix) 40 mg PO DAILY [facility] Last Admin: 06/28/19 08:15 Dose: 40 mg Glipizide (Glucotrol Xl) 5 mg PO DAILY [facility] Last Admin: 06/28/19 08:16 Dose: 5 mg Hydralazine HCl (Apresoline) 100 mg PO Q12H [facility] Last Admin: 06/28/19 08:15 Dose: 100 mg Sodium Chloride (Normal Saline) 250 mls @ 75 mls/hr IV ASDIRECTED [facility] Last Admin: 06/28/19 08:18 Dose: 75 mls/hr Metronidazole 500 mg/ Premix 100 mls @ 100 mls/hr IV BID [facility] Stop: 07/02/19 09:59 Last Admin: 06/28/19 08:18 Dose: 100 mls/hr Insulin Aspart (Novolog) 0 unit SUBCUT WITHMEALSANDBED [facility]; Protocol Last Admin: 06/28/19 08:04 Dose: Not Given Insulin Glargine (Lantus Solostar) 20 units SUBCUT BEDTIME [facility] Last Admin: 06/27/19 21:15 Dose: 20 units Insulin Glargine (Lantus Solostar) 40 units SUBCUT DAILY [facility] Last Admin: 06/28/19 08:25 Dose: 40 units Levothyroxine Sodium (Synthroid) 50 mcg PO ACBREAKFAST [facility] Last Admin: 06/28/19 07:27 Dose: Not Given Lisinopril (Prinivil) 20 mg PO BID [facility] Last Admin: 06/28/19 08:16 Dose: 20 mg Metformin HCl (Glucophage) 1,000 mg PO DAILY [facility] Last Admin: 06/28/19 08:16 Dose: 1,000 mg Multivitamins/Minerals (Centrum) 1 tab PO DAILY [facility] Last Admin: 06/28/19 08:23 Dose: Not Given Non-Formulary Medication (Clonidine) 0.2 patch TOP Q7D [facility] Non-Formulary Medication (Clonidine) 0.3 patch TOP Q7D [facility] Ondansetron HCl (Zofran) 4 mg IVPUSH Q4H PRN PRN Reason: Nausea/Vomiting Last Admin: 06/27/19 23:45 Dose: 4 mg Oxycodone/Acetaminophen (Percocet 325-5 Mg) 1 tab PO Q6H PRN PRN Reason: Pain Last Admin: 06/25/19 20:56 Dose: 1 tab Potassium Chloride (Klor-Con M20) 20 meq PO WITHBREAKFAST [facility] Last Admin: 06/28/19 08:15 Dose: 20 meq Rosuvastatin Calcium (Crestor) 40 mg PO BEDTIME [facility] Senna/Docusate Sodium (Senna Plus) 1 tab PO DAILY PRN PRN Reason: Constipation Last Admin: 06/27/19 21:08 Dose: 1 tab Simethicone (Simethicone) 80 mg PO TID [facility] Last Admin: 06/28/19 08:23 Dose: Not Given Sodium Chloride (Saline Flush) 10 ml FLUSH Q8HR PRN PRN Reason: keep vein open Last Admin: 06/27/19 23:50 Dose: 10 ml Triamcinolone Acetonide (Triamcinolone Acetonide 0.1% Crm) 0 gm TOP BID PRN PRN Reason: Rash Discontinued Medications Allopurinol (Zyloprim) 100 mg PO DAILY [facility] Last Admin: 06/27/19 09:06 Dose: Not Given Ceftriaxone Sodium (Rocephin) 1 gm IVPUSH ONETIME ONE Stop: 06/25/19 16:49 Last Admin: 06/25/19 18:46 Dose: 1 gm Sodium Chloride (Normal Saline) 1,000 mls @ 999 mls/hr IV .BOLUS ONE Stop: 06/25/19 15:03 Last Admin: 06/25/19 15:18 Dose: Not Given Sodium Chloride (Normal Saline) 250 mls @ 100 mls/hr IV ASDIRECTED [facility] Last Admin: 06/25/19 15:16 Dose: 100 mls/hr Azithromycin 500 mg/ Sodium (Chloride) 250 mls @ 250 mls/hr IV ONETIME ONE Stop: 06/25/19 17:47 Last Admin: 06/25/19 20:20 Dose: 250 mls/hr Potassium Chloride 20 meq/ (Premix) 100 mls @ 50 mls/hr IV ONETIME ONE Stop: 06/25/19 18:47 Last Admin: 06/25/19 21:37 Dose: 50 mls/hr Potassium Chloride 20 meq/ (Premix) 100 mls @ 50 mls/hr IV ONETIME ONE Stop: 06/25/19 20:04 Last Admin: 06/25/19 18:51 Dose: 50 mls/hr Ondansetron HCl (Zofran) 4 mg IVPUSH ONETIME ONE Stop: 06/25/19 14:04 Last Admin: 06/25/19 15:14 Dose: 4 mg Rosuvastatin Calcium (Crestor) 40 mg PO DAILY [facility] Last Admin: 06/28/19 08:24 Dose: Not Given - Exam Quality Assessment: Supplemental Oxygen General: Alert, Oriented, Cooperative, No Acute Distress Lungs: Crackles. No: Wheezing Cardiovascular: Regular Rate, Regular Rhythm GI/Abdominal Exam: Soft, Non-Tender, Other (Digital rectal exam negative for occult blood/guaiac-negative) (Female) Exam: Deferred Extremities: No Pedal Edema Peripheral Pulses: 2+: Radial (L), Radial (R) Skin: Other (Improving erythremia LLE, receded from demarcated line) Neurological: Normal Speech, Normal Tone Psy/Mental Status: Alert, Labile Mood Sepsis Event Note - Evaluation Sepsis Screening Result: No Definite Risk - Focused Exam Vital Signs: Vital Signs Temp Pulse Pulse Resp BP BP BP 06/28/19 08:16 81 137/61 06/28/19 08:15 137/61 06/28/19 06:55 97.4 F 80 20 139/56 L 06/28/19 06:50 06/27/19 23:50 91 06/27/19 23:00 99.0 F 90 20 147/60 H Pulse Ox Pulse Ox 06/28/19 08:16 06/28/19 08:15 06/28/19 06:55 93 L 06/28/19 06:50 93 L 06/27/19 23:50 92 L 06/27/19 23:00 92 L Date Exam was Performed: 06/28/19 Time Exam was Performed: 13:11 - Problem List Review Problem List Initiated/Reviewed/Updated: Yes - Plan Plan:: History Summary: Very pleasant 73-year-old patient from a local [facility] was admitted through the ED due to 2 day history of weakness, cough, fever and chills Patient has ischemic left great toe and was evaluated by senior security architect Dr. Lorenzo in [place] on June 22. 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 Pertinent ED findings Chest x-ray unremarkable Elevated white count Hypokalemia Primary Hospital Problems --Cellulitis, LLE, strict elevation, very limited weightbearing, improving --PVD with necrotic left first digit, left declaration --Hypokalemia, mild, --Anemia, borderline macrocytic,no anisocytosis, low circulating iron, low TIBC/ transferrin, normal ferritin at the high enough to compensate for acute infection, [facility] chart review 12/2018 Reticulocyte 1.5% suggestive of hypoproliferative anemia--will repeat. Digital rectal exam negative for guaiac today --Hypoxia, possible hypoventilation/obesity component, assess peak flows, overnight oximetry, ICS Chronic secondary problems CKD, stage III, with elevated Urine protein/creat ratio; serum creat stable ~ 1- 1.3. ACEI, HTN, well controlled on multiple meds. HLD, statin T2DM, A1c 8.3%, reduce to renal dose Hypothyroidism, thyroid replacement therapy Dyspepsia hx of gout Disposition/overall plan --Continue Rocephin and Flagyl --Strict elevation and limited weightbearing LLE --asses Retic counts --assess for H. pylori --Correct K+ levels --Change Duo nebs to PRN, assess peak flows today --Reschedule podiatry appointment --Aggressive pulmonary toileting --Due to anemia, coupled with anticoagulation DAPT Therapy change from H2 to BID PPI therapy, --Patient was changed to inpatient yesterday however patient has no Part- A coverage and appears no Medicaid. Social service consultation placed patient has ongoing needs of anemia evaluation, active but improving infection with limited weightbearing with ongoing hypoxia requiring prison patient as patient high risk for readmission
[2019-06-28] MEDS: Clopidogrel 75 MG Tab PO SCH ×2 (10:02→11:04)
[2019-06-28] MEDS: Aspirin 81 MG Tab.Chew PO SCH ×2 (10:02→20:57)
[2019-06-28] MEDS ORDERED: Albuterol/Ipratropium 3.0-0.5 MG/3 ML Neb Soln NEB PRN (10:20)
[2019-06-28] MEDS ORDERED: Magnesium Hydroxide 400 MG/5 ML Susp 30 ML Cup PO PRN (10:32)
[2019-06-28] MEDS ORDERED: Allopurinol 100 MG Tab PO SCH (12:00)
[2019-06-28] MEDS ORDERED: Potassium Chloride 10 MEQ Tab.ER PO ONE (17:00)
[2019-06-28] MEDS: cefTRIAXone 1 GM Vial IVPUSH SCH (17:34)
[2019-06-28] MEDS: Sodium Chloride 0.9% 10 ML Syringe FLUSH PRN (17:35)
[2019-06-28] MEDS: Omeprazole 20 MG Cap.CR PO SCH (20:58)
[2019-06-29] MEDS: Levothyroxine 50 MCG Tab PO SCH (07:58)
[2019-06-29] MEDS: Insulin Glargine,Human Rec. Analog 100 Units/ML 3 ML Pen SUBCUT SCH ×2 (08:37→21:36)
[2019-06-29] MEDS: Potassium Chloride 20 MEQ Tab.ER PO SCH (08:39)
[2019-06-29] MEDS: metroNIDAZOLE/Normal Saline 500 MG in Premix Bag 1 BAG IV SCH ×2 (08:39→21:29)
[2019-06-29] MEDS: glipiZIDE 5 MG Tab.ER PO SCH (08:39)
[2019-06-29] MEDS: metFORMIN 500 MG Tab PO SCH (08:39)
[2019-06-29] MEDS: hydrALAZINE 50 MG Tab PO SCH ×2 (08:39→21:28)
[2019-06-29] MEDS: Furosemide 40 MG Tab PO SCH (08:41)
[2019-06-29] MEDS: Lisinopril 20 MG Tab PO SCH ×2 (08:42→21:32)
[2019-06-29] MEDS: Docusate Sodium 100 MG Cap PO SCH ×2 (08:42→21:29)
[2019-06-29] MEDS: Multivitamins with Minerals/Iron/Folic Acid/Lycopene Tab PO SCH (08:42)
[2019-06-29] MEDS: Atenolol 25 MG Tab PO SCH ×2 (08:42→21:21)
[2019-06-29] MEDS: Insulin Aspart 100 Units/ML 3 ML Pen SUBCUT SCH ×4 (08:46→21:44)
[2019-06-29] MEDS: Sodium Chloride 0.9% 250 ML IV SCH (08:53)
--- NOTE | 2019-06-29 10:19 | PCM.PN ---
- General Info Date of Service: 06/29/19 Functional Status: Reports: Pain Controlled, Tolerating Diet, Urinating, Incentive Spirometry (1,000 mL). Denies: Ambulating, New Symptoms - Review of Systems General: Denies: Fever, Weakness, Fatigue, Malaise, Night Sweats Pulmonary: Denies: Shortness of Breath, Cough, Sputum, Wheezing Cardiovascular: Denies: Chest Pain Gastrointestinal: Reports: No Symptoms Genitourinary: Denies: Pain Skin: Reports: Dryness, Rash, Other (RLE) Neurological: Denies: Confusion Psychiatric: Denies: Confusion, Agitation - Patient Data Vitals - Most Recent: Last Vital Signs Temp 98.0 F 06/29/19 06:13 Pulse 75 06/29/19 08:42 Resp 20 06/29/19 06:13 BP 136/56 L 06/29/19 08:42 Pulse Ox 95 06/29/19 07:05 Weight - Most Recent: 232 lb 11.2 oz I&O - Last 24 Hours: Intake & Output 06/28/19 06/29/19 06/29/19 22:59 06:59 14:59 Intake Total 350 20 Output Total 500 Balance -150 20 Lab Results Last 24 Hours: Laboratory Results - last 24 hr 06/28/19 06/28/19 06/28/19 Range/Units 07:00 11:27 17:40 Absolute Retic 0.0876 (0.0200-0.1000) x10-6 ul Percent Retic 3.5 H (0.3-2.2) % POC Glucose 196 H 160 H (74-106) mg/dl 06/29/19 Range/Units 07:57 Absolute Retic (0.0200-0.1000) x10-6 ul Percent Retic (0.3-2.2) % POC Glucose 102 (74-106) mg/dl Guillaume Results Last 24 Hours: Microbiology 06/28/19 10:48 Stool Occult Blood (GUILLAUME) - Final Stool / Feces NEGATIVE OCCULT BLOOD REFERENCE RANGE: NEGATIVE Med Orders - Current: Current Medications Acetaminophen (Tylenol) 325 mg PO Q4H PRN PRN Reason: Fever Albuterol/Ipratropium (Duoneb 3.0-0.5 Mg/3 Ml) 3 ml NEB Q6HRRT PRN PRN Reason: Shortness of Breath Allopurinol (Zyloprim) 100 mg PO DAILY@1300 [facility] Artificial Tears (Refresh Tears 0.5%) 0 ml EYEBOTH DAILY PRN PRN Reason: Dry Eyes Aspirin (Aspirin) 81 mg PO BEDTIME [facility] Last Admin: 06/28/19 20:57 Dose: 81 mg Atenolol (Tenormin) 100 mg PO DAILY [facility] Last Admin: 06/29/19 08:42 Dose: 100 mg Atenolol (Tenormin) 50 mg PO BEDTIME [facility] Last Admin: 06/28/19 20:59 Dose: 50 mg Ceftriaxone Sodium (Rocephin) 1 gm IVPUSH Q24H [facility] Last Admin: 06/28/19 17:34 Dose: 1 gm Clonidine HCl (Catapres) 0.1 mg PO DAILY PRN PRN Reason: Hypertension Clopidogrel Bisulfate (Plavix) 75 mg PO DAILY@1300 [facility] Docusate Sodium (Colace) 100 mg PO BID [facility] Last Admin: 06/29/19 08:42 Dose: 100 mg Furosemide (Lasix) 40 mg PO DAILY [facility] Last Admin: 06/29/19 08:41 Dose: 40 mg Glipizide (Glucotrol Xl) 5 mg PO DAILY [facility] Last Admin: 06/29/19 08:39 Dose: 5 mg Hydralazine HCl (Apresoline) 100 mg PO Q12H [facility] Last Admin: 06/29/19 08:39 Dose: 100 mg Sodium Chloride (Normal Saline) 250 mls @ 75 mls/hr IV ASDIRECTED [facility] Last Admin: 06/29/19 08:53 Dose: 75 mls/hr Metronidazole 500 mg/ Premix 100 mls @ 100 mls/hr IV BID [facility] Stop: 07/02/19 09:59 Last Admin: 06/29/19 08:39 Dose: 100 mls/hr Insulin Aspart (Novolog) 0 unit SUBCUT WITHMEALSANDBED [facility]; Protocol Last Admin: 06/29/19 08:46 Dose: Not Given Insulin Glargine (Lantus Solostar) 20 units SUBCUT BEDTIME [facility] Last Admin: 06/28/19 21:09 Dose: 20 units Insulin Glargine (Lantus Solostar) 40 units SUBCUT DAILY [facility] Last Admin: 06/29/19 08:37 Dose: 40 units Levothyroxine Sodium (Synthroid) 50 mcg PO ACBREAKFAST [facility] Last Admin: 06/29/19 07:58 Dose: 50 mcg Lisinopril (Prinivil) 20 mg PO BID [facility] Last Admin: 06/29/19 08:42 Dose: 20 mg Magnesium Hydroxide (Milk Of Magnesia) 30 ml PO DAILY PRN PRN Reason: Constipation Last Admin: 06/28/19 11:05 Dose: 30 ml Metformin HCl (Glucophage) 500 mg PO DAILY [facility] Last Admin: 06/29/19 08:39 Dose: 500 mg Multivitamins/Minerals (Centrum) 1 tab PO DAILY [facility] Last Admin: 06/29/19 08:42 Dose: 1 tab Non-Formulary Medication (Clonidine) 0.2 patch TOP Q7D [facility] Non-Formulary Medication (Clonidine) 0.3 patch TOP Q7D [facility] Omeprazole (Omeprazole) 20 mg PO BEDTIME [facility] Last Admin: 06/28/19 20:58 Dose: 20 mg Ondansetron HCl (Zofran) 4 mg IVPUSH Q4H PRN PRN Reason: Nausea/Vomiting Last Admin: 06/27/19 23:45 Dose: 4 mg Oxycodone/Acetaminophen (Percocet 325-5 Mg) 1 tab PO Q6H PRN PRN Reason: Pain Last Admin: 06/25/19 20:56 Dose: 1 tab Potassium Chloride (Klor-Con M20) 20 meq PO WITHBREAKFAST [facility] Last Admin: 06/29/19 08:39 Dose: 20 meq Rosuvastatin Calcium (Crestor) 40 mg PO BEDTIME [facility] Last Admin: 06/28/19 20:58 Dose: 40 mg Senna/Docusate Sodium (Senna Plus) 1 tab PO DAILY PRN PRN Reason: Constipation Last Admin: 06/27/19 21:08 Dose: 1 tab Sodium Chloride (Saline Flush) 10 ml FLUSH Q8HR PRN PRN Reason: keep vein open Last Admin: 06/28/19 17:35 Dose: 10 ml Triamcinolone Acetonide (Triamcinolone Acetonide 0.1% Crm) 0 gm TOP BID PRN PRN Reason: Rash Discontinued Medications Albuterol/Ipratropium (Duoneb 3.0-0.5 Mg/3 Ml) 3 ml NEB Q6HRRT [facility] Last Admin: 06/28/19 06:55 Dose: 3 ml Allopurinol (Zyloprim) 100 mg PO DAILY [facility] Last Admin: 06/27/19 09:06 Dose: Not Given Allopurinol (Zyloprim) 100 mg PO DAILY@1200 [facility] Last Admin: 06/28/19 11:04 Dose: 100 mg Aspirin (Aspirin) 81 mg PO DAILY [facility] Last Admin: 06/28/19 10:02 Dose: Not Given Ceftriaxone Sodium (Rocephin) 1 gm IVPUSH ONETIME ONE Stop: 06/25/19 16:49 Last Admin: 06/25/19 18:46 Dose: 1 gm Clopidogrel Bisulfate (Plavix) 75 mg PO DAILY [facility] Last Admin: 06/28/19 11:04 Dose: 75 mg Famotidine (Pepcid) 20 mg PO DAILY [facility] Last Admin: 06/28/19 08:24 Dose: 20 mg Sodium Chloride (Normal Saline) 1,000 mls @ 999 mls/hr IV .BOLUS ONE Stop: 06/25/19 15:03 Last Admin: 06/25/19 15:18 Dose: Not Given Sodium Chloride (Normal Saline) 250 mls @ 100 mls/hr IV ASDIRECTED [facility] Last Admin: 06/25/19 15:16 Dose: 100 mls/hr Azithromycin 500 mg/ Sodium (Chloride) 250 mls @ 250 mls/hr IV ONETIME ONE Stop: 06/25/19 17:47 Last Admin: 06/25/19 20:20 Dose: 250 mls/hr Potassium Chloride 20 meq/ (Premix) 100 mls @ 50 mls/hr IV ONETIME ONE Stop: 06/25/19 18:47 Last Admin: 06/25/19 21:37 Dose: 50 mls/hr Potassium Chloride 20 meq/ (Premix) 100 mls @ 50 mls/hr IV ONETIME ONE Stop: 06/25/19 20:04 Last Admin: 06/25/19 18:51 Dose: 50 mls/hr Metformin HCl (Glucophage) 1,000 mg PO DAILY [facility] Last Admin: 06/28/19 08:16 Dose: 1,000 mg Ondansetron HCl (Zofran) 4 mg IVPUSH ONETIME ONE Stop: 06/25/19 14:04 Last Admin: 06/25/19 15:14 Dose: 4 mg Potassium Chloride (Klor-Con 10) 20 meq PO ONETIME ONE Stop: 06/28/19 17:01 Last Admin: 06/28/19 17:34 Dose: 20 meq Rosuvastatin Calcium (Crestor) 40 mg PO DAILY [facility] Last Admin: 06/28/19 08:24 Dose: Not Given Simethicone (Simethicone) 80 mg PO TID [facility] Last Admin: 06/28/19 08:23 Dose: Not Given - Exam Quality Assessment: Supplemental Oxygen. No: Skin Breakdown General: Alert, Oriented Neck: Supple Lungs: Clear to Auscultation, Normal Respiratory Effort Cardiovascular: Regular Rate, Regular Rhythm (Female) Exam: Deferred Back Exam: No: CVA Tenderness (R) Extremities: Pedal Edema Peripheral Pulses: 0: Dorsalis Pedis (L), 2+: Radial (L), Radial (R) Skin: Other (Chronic left first toe, stable eschar, erythema improving LLE, slight increase in warmth, no drainage. ) Wound/Incisions: Healing Well, No Drainage, Erythema Improving Psy/Mental Status: Alert, Normal Affect, Normal Mood Sepsis Event Note - Evaluation Sepsis Screening Result: No Definite Risk - Focused Exam Vital Signs: Vital Signs Temp Temp Pulse Pulse Resp BP BP 06/29/19 08:42 75 136/56 L 06/29/19 08:39 136/56 L 06/29/19 07:05 06/29/19 06:13 98.0 F 77 20 153/58 H 06/29/19 03:00 98.3 F 65 20 160/58 H 06/28/19 22:27 97.8 F 85 20 107/53 L Pulse Ox Pulse Ox 06/29/19 08:42 06/29/19 08:39 06/29/19 07:05 95 06/29/19 06:13 95 06/29/19 03:00 91 L 06/28/19 22:27 95 Date Exam was Performed: 06/29/19 Time Exam was Performed: 10:06 - Problem List Review Problem List Initiated/Reviewed/Updated: Yes - My Orders Last 24 Hours: My Active Orders 06/28/19 10:20 Albuterol/Ipratropium [DuoNeb 3.0-0.5 MG/3 ML] 3 ml NEB Q6HRRT PRN 06/28/19 10:32 Magnesium Hydroxide [Milk of Magnesia] 30 ml PO DAILY PRN 06/28/19 18:01 H PYLORI STOOL ANTIGEN [MREF] Routine 06/28/19 21:00 Omeprazole 20 mg PO BEDTIME 06/29/19 09:00 metFORMIN [Glucophage] 500 mg PO DAILY 06/29/19 09:07 BASIC METABOLIC PANEL,BMP [CHEM] Routine HEMOGLOBIN (HGB) SOLUBILITY [REF] Routine 06/29/19 09:28 HAPTOGLOBIN [REF] Urgent 06/29/19 09:37 BLOOD SMEARS TO PATHOLOGIST [REF] Urgent 06/29/19 09:40 ERYTHROPOIETIN [REF] Routine - Plan Plan:: History Summary: Very pleasant 73-year-old patient from a local [facility] was admitted through the ED due to 2 day history of weakness, cough, fever and chills Patient has ischemic left great toe and was evaluated by bracelet and brooch maker Dr. Lorenzo in [place] on June 22. 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 Pertinent ED findings Chest x-ray unremarkable Elevated white count Hypokalemia Primary Hospital Problems --Cellulitis, LLE, strict elevation, very limited weightbearing, improving --PVD with necrotic left first digit, left declaration --Hypokalemia, mild, --Anemia, likely ACD, borderline macrocytic, no anisocytosis, low circulating iron, low TIBC/transferrin, normal ferritin at the high enough to compensate for acute infection, [facility] chart review 12/2018 Reticulocyte 1.5% suggestive of hypoproliferative anemia, however repeat reticulocyte count 3.5%. Leaning more towards ACD Digital rectal exam negative for guaiac, also stool was negative yesterday. --Hypoxia, possible hypoventilation/obesity component, assess peak flows, overnight oximetry, ICS, home oxygen anticipation Chronic /stablesecondary problems CKD, stage III, with elevated Urine protein/creat ratio; serum creat stable below baseline 0.9, ACEI, HTN, well controlled on multiple meds. HLD, statin T2DM, A1c 8.3%, reduced to renal dose Hypothyroidism, thyroid replacement therapy Dyspepsia, hx of gout Disposition/overall plan --Continue Rocephin and Flagyl --Elevation LLE in bed, --H. pylori--pending --Assess haptoglobin, peripheral smear --Changed Duo nebs to PRN, assess peak flows today --Aggressive pulmonary toileting --Will set her up for home oxygen --Rescheduled podiatry appointment --Due to anemia, coupled with anticoagulation DAPT Therapy change from H2 to BID PPI therapy --Possible discharge in a.m., RT consult to set her up for home oxygen
[2019-06-29 10:47] LABS: ANION GAP 11.5 mmol/L (5-15); CHLORIDE,CL 96 mmol/L (98-115); SODIUM,NA 135 mmol/L (136-145)
[2019-06-29] MEDS: Clopidogrel 75 MG Tab PO SCH (12:27)
[2019-06-29] MEDS: Allopurinol 100 MG Tab PO SCH (12:27)
[2019-06-29] MEDS: cefTRIAXone 1 GM Vial IVPUSH SCH (18:21)
[2019-06-29] MEDS: Aspirin 81 MG Tab.Chew PO SCH (21:28)
[2019-06-29] MEDS: Rosuvastatin 10 MG Tab PO SCH (21:29)
[2019-06-29] MEDS: Omeprazole 20 MG Cap.CR PO SCH (21:31)
[2019-06-30] MEDS: Levothyroxine 50 MCG Tab PO SCH (07:36)
[2019-06-30] MEDS: Insulin Aspart 100 Units/ML 3 ML Pen SUBCUT SCH ×2 (08:51→12:08)
[2019-06-30] MEDS: hydrALAZINE 50 MG Tab PO SCH (09:01)
[2019-06-30] MEDS: Potassium Chloride 20 MEQ Tab.ER PO SCH (09:01)
[2019-06-30] MEDS: Multivitamins with Minerals/Iron/Folic Acid/Lycopene Tab PO SCH (09:07)
[2019-06-30] MEDS: Docusate Sodium 100 MG Cap PO SCH (09:08)
[2019-06-30] MEDS: Furosemide 40 MG Tab PO SCH (09:08)
[2019-06-30] MEDS: Lisinopril 20 MG Tab PO SCH (09:08)
[2019-06-30] MEDS: metFORMIN 500 MG Tab PO SCH (09:08)
[2019-06-30] MEDS: Atenolol 25 MG Tab PO SCH (09:09)
[2019-06-30] MEDS: glipiZIDE 5 MG Tab.ER PO SCH (09:12)
[2019-06-30] MEDS: metroNIDAZOLE/Normal Saline 500 MG in Premix Bag 1 BAG IV SCH (09:21)
[2019-06-30] MEDS: Insulin Glargine,Human Rec. Analog 100 Units/ML 3 ML Pen SUBCUT SCH (09:38)
[2019-06-30 09:51] LABS: O2 DELIVERY DEVICE ROOM AIR
[2019-06-30 09:52] LABS: BASE EXCESS ARTERIAL 8 mmol/L (-2-3); BICARBONATE,ARTERIAL 31.1 mmol/L (22-26); O2 SATURATION ARTERIAL 92 % (95-98); PCO2 ARTERIAL 40 mmHG (35-45)
[2019-06-30 09:53] LABS: PO2 ARTERIAL 58 mmHG (80-105)
[2019-06-30] MEDS: Allopurinol 100 MG Tab PO SCH (12:37)
[2019-06-30] MEDS: Clopidogrel 75 MG Tab PO SCH (12:37)
--- NOTE | 2019-07-04 09:14 | PCM.DCSUM1 ---
Discharge Summary - Hospital Course Diagnosis: Stroke: No - Discharge Data Discharge Date: 06/30/19 Discharge Disposition: Home, Self-Care 01 Condition: Fair - Referral to Home Health Primary Care Physician: Jesenia Ash PA-C - Patient Instructions Activity: Cough & Deep Breathe, Elevate Extremity Driving: Do Not Drive Showering/Bathing: May Shower Notify Provider of: Fever, Increased Pain Other/Special Instructions: Report any shortness of breath. - Discharge Plan *PRESCRIPTION DRUG MONITORING PROGRAM REVIEWED*: Not Applicable *COPY OF PRESCRIPTION DRUG MONITORING REPORT IN PATIENT CECILIO: Not Applicable Prescriptions/Med Rec: Clindamycin HCl [Cleocin HCl] 300 mg PO QID #24 capsule Home Medications: Home Meds Aspirin 81 mg PO DAILY 06/25/19 [History] Carboxymethylcellulose Sodium [Refresh Tears 0.5%] 1 ml EYEBOTH DAILY PRN [History] Clopidogrel Bisulfate [Clopidogrel] 75 mg PO DAILY 06/25/19 [History] Famotidine [Pepcid] 20 mg PO BID 06/25/19 [History] Furosemide [Lasix] 40 mg PO DAILY 06/25/19 [History] Insulin Glarg,Human.Rec.Analog [Lantus] 20 unit SQ BEDTIME 06/25/19 [History] Insulin Glarg,Human.Rec.Analog [Lantus] 40 - 45 unit SQ DAILY 06/25/19 [History] Levothyroxine [Synthroid] 50 mcg PO ACBREAKFAST 06/25/19 [History] Multivitamin with Minerals [Multivitamins with Minerals] 1 tab PO DAILY [History] Rosuvastatin Calcium [Crestor] 40 mg PO DAILY 06/25/19 [History] Sennosides/Docusate Sodium [Senna Plus 8.6-50 mg Tablet] 1 each PO DAILY PRN [History] Simethicone 80 mg PO TID 06/25/19 [History] Triamcinolone Acetonide [Triamcinolone Acetonide 0.1% Crm] 1 applic TOP BID PRN 06/25/19 [History] allopurinoL [Zyloprim] 100 mg PO DAILY 06/25/19 [History] atenoloL [Atenolol] 100 mg PO DAILY 06/25/19 [History] atenoloL [Tenormin] 50 mg PO BEDTIME 06/25/19 [History] cloNIDine 0.2 patch TOP Q7D 06/25/19 [History] cloNIDine 0.3 patch TOP Q7D 06/25/19 [History] cloNIDine [Catapres] 0.1 mg PO DAILY PRN 06/25/19 [History] glipiZIDE [Glipizide ER] 5 mg PO DAILY 06/25/19 [History] hydrALAZINE [Apresoline] 100 mg PO Q12HR 06/25/19 [History] lisinopriL [Lisinopril] 20 mg PO BID 06/25/19 [History] metFORMIN [Glucophage] 1,000 mg PO DAILY 06/25/19 [History] oxyCODONE HCl/Acetaminophen [Oxycodone-Acetaminophen 5-325] 1 each PO Q6H PRN [History] Clindamycin HCl [Cleocin HCl] 300 mg PO QID #24 capsule 06/30/19 [Rx] Referrals: Jesenia Ash PA-C [Primary Care Provider] - (early next week.. ) - Discharge Summary/Plan Comment DC Time >30 min.: Yes Discharge Summary/Plan Comment: Final diagnosis --Cellulitis, LLE, --PVD with necrotic left first digit --Hypokalemia, mild, resolved --Anemia, likely ACD, borderline macrocytic, no anisocytosis, low circulating iron, low TIBC/transferrin, normal ferritin at the high enough to compensate for acute infection, [facility] chart review 12/2018 Reticulocyte 1.5% suggestive of hypoproliferative anemia, however repeat reticulocyte count 3.5%. Leaning more towards ACD Digital rectal exam negative for guaiac, also stool was negative yesterday. --Hypoxia, possible hypoventilation/obesity component. Chronic/stablesecondary problems CKD, stage III, with elevated Urine protein/creat ratio; serum creat stable below baseline 0.9, ACEI, HTN, well controlled on multiple meds. HLD, statin T2DM, A1c 8.3%, Hypothyroidism, thyroid replacement therapy Dyspepsia, hx of gout History Summary: It was a pleasure taking care of Ms. Price while at [facility]. She is a pleasant 73-year-old patient from a local [facility] who was admitted through the ED due to 2-day history of weakness, cough, fever and chills. She does have significant PVD with conconmitan necrotic left great toe in which she was evaluated by digital marketing consultant Dr. Lorenzo in [place] on June 22 --likely declaration management however she recently missed her follow-up appointment as she was in the hospital. 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. She did develop cellulitis in her left lower extremity requiring IV antibiotics Hospital course Weight fairly well as she was treated for cellulitis with IV antibiotics in which she did improve significantly in her left lower extremity. Her leg was elevated appropriately and strict weightbearing was provided. Her chest x-ray was unremarkable, she did have elevated inflammatory markers which these trended downward she was given Rocephin and Flagyl, her H. pylori was pending upon discharge. She did have anemia with borderline macrocytic, no anisocytosis, low circulating iron, low TIBC/transferrin, normal ferritin at the high enough to compensate for acute infection, [facility] chart review 12/2018 Reticulocyte 1.5% suggestive of hypoproliferative anemia, however repeat reticulocyte favorable at count 3.5%. Leaning more towards ACD as her haptoglobin was elevated. I performed a Digital rectal exam negative for guaiac, also stool was negative for blood. She did have notable Hypoxia with very little subjective dyspnea all this was present on admission felt likely chronic for her and possible hypoventilation/obesity component, ICS, did improve her however she was still hypoxic at baseline. Subsequent ABGs showed low O2 however normal CO2 levels pH 7.5. Due to no definitive pulmonary disease she did not qualify for home oxygen however she was set up for an overnight oximetry through [facility]. Recommendations upon follow-up --Review overnight oximetry --Coordinate with podiatry regarding necrotic toe --Recommend oncology/hematology referral for her anemia of chronic disease This to [id number] evaluation/encounter for the need for home health services to include nursing as the patient does have high potential for rehospitalization due to hypoxia, debility, infection,. Please develop a diabetes management plan and education to include medication use, and home safety assessment instruction to keep left lower extremity elevated when not ambulating and to assess her wound care of her left lower extremity and assessment of her necrotic toe. She is homebound due to decreased strength and endurance, unsteady gait, improving however ongoinginfection and muscle weakness with limited weightbearing due to an necrotic toe. - Patient Data Vitals - Most Recent: Last Vital Signs Temp 97.7 F 06/30/19 14:30 Pulse 78 06/30/19 14:30 Resp 18 06/30/19 14:30 BP 128/61 06/30/19 14:30 Pulse Ox 93 L 06/30/19 14:30 Weight - Most Recent: 232 lb 11.2 oz Lab Results - Last 24 hrs: Laboratory Results - last 24 hr 06/29/19 06/29/19 Range/Units 10:05 10:05 Hemoglobin Solubility Negative (Negative) Erythropoietin 10.4 (2.6-18.5) mIU/mL Med Orders - Current: Current Medications Discontinued Medications Acetaminophen (Tylenol) 325 mg PO Q4H PRN PRN Reason: Fever Albuterol/Ipratropium (Duoneb 3.0-0.5 Mg/3 Ml) 3 ml NEB Q6HRRT [facility] Last Admin: 06/28/19 06:55 Dose: 3 ml Albuterol/Ipratropium (Duoneb 3.0-0.5 Mg/3 Ml) 3 ml NEB Q6HRRT PRN PRN Reason: Shortness of Breath Allopurinol (Zyloprim) 100 mg PO DAILY [facility] Last Admin: 06/27/19 09:06 Dose: Not Given Allopurinol (Zyloprim) 100 mg PO DAILY@1200 [facility] Last Admin: 06/28/19 11:04 Dose: 100 mg Allopurinol (Zyloprim) 100 mg PO DAILY@1300 [facility] Last Admin: 06/30/19 12:37 Dose: 100 mg Artificial Tears (Refresh Tears 0.5%) 0 ml EYEBOTH DAILY PRN PRN Reason: Dry Eyes Aspirin (Aspirin) 81 mg PO DAILY [facility] Last Admin: 06/28/19 10:02 Dose: Not Given Aspirin (Aspirin) 81 mg PO BEDTIME [facility] Last Admin: 06/29/19 21:28 Dose: 81 mg Atenolol (Tenormin) 100 mg PO DAILY [facility] Last Admin: 06/30/19 09:09 Dose: 100 mg Atenolol (Tenormin) 50 mg PO BEDTIME [facility] Last Admin: 06/29/19 21:21 Dose: 50 mg Ceftriaxone Sodium (Rocephin) 1 gm IVPUSH ONETIME ONE Stop: 06/25/19 16:49 Last Admin: 06/25/19 18:46 Dose: 1 gm Ceftriaxone Sodium (Rocephin) 1 gm IVPUSH Q24H [facility] Last Admin: 06/29/19 18:21 Dose: 1 gm Clonidine HCl (Catapres) 0.1 mg PO DAILY PRN PRN Reason: Hypertension Clopidogrel Bisulfate (Plavix) 75 mg PO DAILY [facility] Last Admin: 06/28/19 11:04 Dose: 75 mg Clopidogrel Bisulfate (Plavix) 75 mg PO DAILY@1300 [facility] Last Admin: 06/30/19 12:37 Dose: 75 mg Docusate Sodium (Colace) 100 mg PO BID [facility] Last Admin: 06/30/19 09:08 Dose: 100 mg Famotidine (Pepcid) 20 mg PO DAILY [facility] Last Admin: 06/28/19 08:24 Dose: 20 mg Furosemide (Lasix) 40 mg PO DAILY [facility] Last Admin: 06/30/19 09:08 Dose: 40 mg Glipizide (Glucotrol Xl) 5 mg PO DAILY [facility] Last Admin: 06/30/19 09:12 Dose: Not Given Hydralazine HCl (Apresoline) 100 mg PO Q12H [facility] Last Admin: 06/30/19 09:01 Dose: 100 mg Sodium Chloride (Normal Saline) 1,000 mls @ 999 mls/hr IV .BOLUS ONE Stop: 06/25/19 15:03 Last Admin: 06/25/19 15:18 Dose: Not Given Sodium Chloride (Normal Saline) 250 mls @ 100 mls/hr IV ASDIRECTED [facility] Last Admin: 06/25/19 15:16 Dose: 100 mls/hr Azithromycin 500 mg/ Sodium (Chloride) 250 mls @ 250 mls/hr IV ONETIME ONE Stop: 06/25/19 17:47 Last Admin: 06/25/19 20:20 Dose: 250 mls/hr Potassium Chloride 20 meq/ (Premix) 100 mls @ 50 mls/hr IV ONETIME ONE Stop: 06/25/19 18:47 Last Admin: 06/25/19 21:37 Dose: 50 mls/hr Potassium Chloride 20 meq/ (Premix) 100 mls @ 50 mls/hr IV ONETIME ONE Stop: 06/25/19 20:04 Last Admin: 06/25/19 18:51 Dose: 50 mls/hr Sodium Chloride (Normal Saline) 250 mls @ 75 mls/hr IV ASDIRECTED [facility] Last Admin: 06/29/19 08:53 Dose: 75 mls/hr Metronidazole 500 mg/ Premix 100 mls @ 100 mls/hr IV BID [facility] Stop: 07/02/19 09:59 Last Admin: 06/30/19 09:21 Dose: 100 mls/hr Insulin Aspart (Novolog) 0 unit SUBCUT WITHMEALSANDBED [facility]; Protocol Last Admin: 06/30/19 12:08 Dose: 2 units Insulin Glargine (Lantus Solostar) 20 units SUBCUT BEDTIME [facility] Last Admin: 06/29/19 21:36 Dose: 20 units Insulin Glargine (Lantus Solostar) 40 units SUBCUT DAILY [facility] Last Admin: 06/30/19 09:38 Dose: 40 units Levothyroxine Sodium (Synthroid) 50 mcg PO ACBREAKFAST [facility] Last Admin: 06/30/19 07:36 Dose: 50 mcg Lisinopril (Prinivil) 20 mg PO BID [facility] Last Admin: 06/30/19 09:08 Dose: 20 mg Magnesium Hydroxide (Milk Of Magnesia) 30 ml PO DAILY PRN PRN Reason: Constipation Last Admin: 06/28/19 11:05 Dose: 30 ml Metformin HCl (Glucophage) 1,000 mg PO DAILY [facility] Last Admin: 06/28/19 08:16 Dose: 1,000 mg Metformin HCl (Glucophage) 500 mg PO DAILY [facility] Last Admin: 06/30/19 09:08 Dose: 500 mg Multivitamins/Minerals (Centrum) 1 tab PO DAILY [facility] Last Admin: 06/30/19 09:07 Dose: 1 tab Non-Formulary Medication (Clonidine) 0.2 patch TOP Q7D [facility] Non-Formulary Medication (Clonidine) 0.3 patch TOP Q7D [facility] Omeprazole (Omeprazole) 20 mg PO BEDTIME [facility] Last Admin: 06/29/19 21:31 Dose: 20 mg Ondansetron HCl (Zofran) 4 mg IVPUSH ONETIME ONE Stop: 06/25/19 14:04 Last Admin: 06/25/19 15:14 Dose: 4 mg Ondansetron HCl (Zofran) 4 mg IVPUSH Q4H PRN PRN Reason: Nausea/Vomiting Last Admin: 06/27/19 23:45 Dose: 4 mg Oxycodone/Acetaminophen (Percocet 325-5 Mg) 1 tab PO Q6H PRN PRN Reason: Pain Last Admin: 06/25/19 20:56 Dose: 1 tab Potassium Chloride (Klor-Con M20) 20 meq PO WITHBREAKFAST [facility] Last Admin: 06/30/19 09:01 Dose: 20 meq Potassium Chloride (Klor-Con 10) 20 meq PO ONETIME ONE Stop: 06/28/19 17:01 Last Admin: 06/28/19 17:34 Dose: 20 meq Rosuvastatin Calcium (Crestor) 40 mg PO DAILY [facility] Last Admin: 06/28/19 08:24 Dose: Not Given Rosuvastatin Calcium (Crestor) 40 mg PO BEDTIME [facility] Last Admin: 06/29/19 21:29 Dose: 40 mg Senna/Docusate Sodium (Senna Plus) 1 tab PO DAILY PRN PRN Reason: Constipation Last Admin: 06/27/19 21:08 Dose: 1 tab Simethicone (Simethicone) 80 mg PO TID [facility] Last Admin: 06/28/19 08:23 Dose: Not Given Sodium Chloride (Saline Flush) 10 ml FLUSH Q8HR PRN PRN Reason: keep vein open Last Admin: 06/28/19 17:35 Dose: 10 ml Triamcinolone Acetonide (Triamcinolone Acetonide 0.1% Crm) 0 gm TOP BID PRN PRN Reason: Rash
== END 2019-06-30 15:10 | disposition home or self-care (01) | DRG 603 ==
LOC: KA.ED 13:40 → KA.MS 16:50 → OBSVTOIN 06-27 14:24
PROVIDERS: ADMIT Physician Assistant Surgical; ATTEND Physician Assistant
DX: J40 Bronchitis, not specified as acute or chronic (principal); L03.116 Cellulitis of left lower limb; E11.52 Type 2 diabetes mellitus with diabetic peripheral angiopathy with gangrene; D72.829 Elevated white blood cell count, unspecified; D64.9 Anemia, unspecified; I96 Gangrene, not elsewhere classified; E66.2 Morbid (severe) obesity with alveolar hypoventilation; Z68.41 Body mass index [BMI] 40.0-44.9, adult; D53.9 Nutritional anemia, unspecified; E87.6 Hypokalemia; R09.02 Hypoxemia; I12.9 Hypertensive chronic kidney disease with stage 1 through stage 4 chronic kidney disease, or unspecified chronic kidney disease; E78.5 Hyperlipidemia, unspecified; E03.9 Hypothyroidism, unspecified; M10.9 Gout, unspecified; E11.22 Type 2 diabetes mellitus with diabetic chronic kidney disease; D63.8 Anemia in other chronic diseases classified elsewhere; I25.10 Atherosclerotic heart disease of native coronary artery without angina pectoris; N18.3 Chronic kidney disease, stage 3 (moderate); Z79.82 Long term (current) use of aspirin; Z88.0 Allergy status to penicillin; Z79.899 Other long term (current) drug therapy; Z79.4 Long term (current) use of insulin; Z79.890 Hormone replacement therapy
CPT/HCPCS: 36415; 36600; 71046; 73620-LT; 80048; 80053; 81001; 82272; 82607; 82668; 82728; 82746; 82803; 82962; 83010; 83540; 83550; 83880; 85008; 85025; 85046; 85660; 87338; 87804; 94640; 96361; 96365; 96366; 96367; 96368; 96374; 96375; 99283; 99285-25; A9270-GY; G0378; J0456; J0696; J1815-GY; J2405; J3480; J3490; J7050; J7620-GY